=== PATIENT | male | born 1950 | race Caucasian/White ===

== ENCOUNTER 2017-10-27 11:49 | Outpatient (CLI) | payer MEDICARE, OTHER ==
[~2017-10-27] VITALS: Ht 188 cm; Wt 132.7 kg
--- NOTE | ~2017-10-27 | HEMODYNAMI ---
PATIENT:SAVANNA PORTER MEDICAL RECORD: [id number] : 52 LOCATION:D.CAT ADMISSION DATE: 10/27/17 Generatedon:10/27/201714:29 Patient name: SAVANNA PORTER Patient #: [id number] SSN : : 1950 Date of study: 10/27/2017 Page: Of Hemodynamic Procedure Report Patient Data Patient Demographics Procedure consent was obtained First Name: SAVANNA Gender: Male Last Name: CHARLOTTE : 1950 Middle Initial: M Age: 67 year(s) Patient #: [id number] Race: Unknown Additional ID: [id number] Contact details Address: [facility] [address] State: [place] City: [place] Zip code: [address] Past Medical History Allergies: No known allergies Admission Admission Data Admission Date: 10/27/2017 Admission Time: 11:49 Height (in.): 73 BSA: 2.51 (m2) Height (cm.): 185.42 BMI: 37.73 (kg/m2) Weight (lbs.): 286 Weight (kg.): 129.73 Procedure Procedure Types Cath Procedure Diagnostic Procedure Sedation Charges Moderate Sedation up to 30 minutes [facility] w/Coronaries PCI Procedure Coronary Stent Coronary Stent Initial Procedure Description Procedure Date Procedure Date: 10/27/2017 Procedure Start Time: 13:54 Procedure End Time: 14:28 Procedure Staff Name Function Rachid Garber MD Performing Physician Diann Mccoy RT Monitor Ignacio Cerda RN Nurse Piper Gonzalez RT Scrub Procedure Data Cath Procedure Fluoroscopy Diagnostic fluoroscopy Total fluoroscopy Time: 8.7 time: 8.7 min min Diagnostic fluoroscopy Total fluoroscopy dose: dose: 2080 mGy 2080 mGy Contrast Material Contrast Material Type Amount (ml) Isovue 300 153 Entry Location Entry Primary Successful Side Size Upsize Upsize Entry Closure Paulino ccessful Closure Location (Fr) 1 (Fr) 2 (Fr) Remarks Device Remarks Radial Right 6 Fr Mechanical TR Band artery Short Compression Femoral Right 5 Fr 6 Fr Exoseal artery Short Estimated blood loss: 10 ml Diagnostic catheters Device Type Used For End Catheter Placement DIAGNOSTIC Port Hadlock 110cm 5 Procedure Fr catheter (145255) DIAGNOSTIC AR 1 MOD 5Fr Procedure catheter ([id number]) DIAGNOSTIC 3DRC 5Fr Procedure catheter ([id number]) Procedure Complications No complications Procedure Medications Medication Administration Route Dosage Oxygen NC 2 l/min Lidocaine 2% added to field 20 Heparin Flush Bag added to field 2 bags (1000units/500ml NS) 0.9% NaCl I.V. 100 ml/hr Radial Cocktail I.A. 1 syringe (Verapomil 2mg/Nitro 400mcg/Heparin 1500units) Versed I.V. 1 mg Fentanyl I.V. 50 mcg Versed I.V. 1 mg Fentanyl I.V. 50 mcg Versed I.V. 1 mg Fentanyl I.V. 50 mcg Versed I.V. 1 mg Fentanyl I.V. 50 mcg Heparin Bolus I.V. 5000 units Integrilin (Bolus I.V. 11.3 ml 2mg/ml) Plavix P.O. 600 mg Hemodynamics Rest BSA: 2.51 (m2) O2 Consumption: Estimated: 286.23 (ml/min) O2 Consumption indexed : Estimated:114.04 (ml/min/m) Heart Rate: 64 (bpm) Pressure Samples Time Site Value (mmHg) Purpose Heart Use Rate(bpm) 13:58 LV 131/4,15 Snapshot 64 13:58 AO 107/66(85) Pullback 63 13:58 LV 120/14,16 Pullback 63 Gradients Valve Time Site 1 Site 2 Mean SEP/DFP Peak To Heart Use (mmHg) (sec/min) Peak Rate (mmHg) (bpm) Aortic 13:58 LV AO 13 14 13 63 120/14,16 107/66(85) Calculations Valve P-P Mean Valve Index Valve Source Name Gradient Area Flow (cm2) Aortic 13 13 13 13 Snapshots Pre Cath Intra NCS Post Cath Vital Signs Time Heart Resp SPO2 etCO2 NIBP (mmHg) Rhythm Pain Sedation Rate (ipm) (%) (mmHg) Status Level (bpm) 13:50:48 53 17 98 28.5 Measuring NSR 0 (11) 10(A) , No pain 13:51:11 49 20 97 32.2 180/88(146) NSR 0 (11) 10(A) , No pain 13:55:35 55 17 94 42 160/77(117) NSR 0 (11) 9(A) , No pain 13:59:57 63 16 94 38.7 148/82(110) NSR 0 (11) 9(A) , No pain 14:04:21 61 16 94 37 142/82(121) NSR 0 (11) 9(A) , No pain 14:09:37 54 17 98 36.7 148/82(116) NSR 0 (11) 9(A) , No pain 14:13:55 62 16 94 27.8 129/78(108) NSR 0 (11) 9(A) , No pain 14:18:09 60 17 95 0 136/73(122) NSR 0 (11) 10(A) , No pain 14:22:29 63 21 96 21 135/83(101) NSR 0 (11) 10(A) , No pain 14:26:49 62 18 97 27.7 138/79(99) NSR 0 (11) 10(A) , No pain Medications Time Medication Route Dose Verified Delivered Reason Note s Effectiveness by by 13:48:09 Oxygen NC 2 l/min Racihd Pierre used for [facility] Cameron Cerda RN procedure 13:48:16 Lidocaine 2% added 20ml Rachid Rashid for local to vial [facility] anesthetic field MD THOMAS 13:48:23 Heparin Flush added 2 bags Rachid Rashid used for Bag to [facility] procedure (1000units/500ml field MD THOMAS NS) 13:48:32 0.9% NaCl I.V. 100 Rachid Pierre Per physician ml/hr [facility] Cameron Cerda RN, MD 13:48:44 Radial Cocktail I.A. 1 Rachid Rashid for (Verapomil syringe [facility] vasodilation 2mg/Nitro MD THOMAS 400mcg/Heparin 1500units) 13:48:50 Versed I.V. 1 mg Rachid Pierre for sedation [facility] Cameron Cerda RN, MD 13:48:56 Fentanyl I.V. 50 mcg Rachid Castilloie for sedation [facility] Cameron Cerda RN, MD 13:52:32 Versed I.V. 1 mg Rachid Pierre for sedation [facility] Cameron Cerda RN, MD 13:52:36 Fentanyl I.V. 50 mcg Rachid Pierre for sedation [facility] Cameron Cerda RN, MD 13:57:57 Versed I.V. 1 mg Rachid Castilloie for sedation [facility] Cameron Cerda RN, MD 13:58:02 Fentanyl I.V. 50 mcg Rachid Castilloie for sedation [facility] Cameron Cerda RN, MD 14:08:23 Versed I.V. 1 mg Rachid Castilloie for sedation [facility] Cameron Cerda RN, MD 14:08:26 Fentanyl I.V. 50 mcg Rachid Pierre for sedation [facility] Cameron Cerda RN, MD 14:12:44 Heparin Bolus I.V. 5000 Rachid Pierre for veri fied units [facility] Cameron Cerda RN anticoagulation with dr MD contreras 14:14:20 Integrilin I.V. 11.3 ml Rachid Castilloie for wast ed (Bolus 2mg/ml) [facility] Cameron Cerda RN antiplatelet 8.7 ml MD therapy of vial 14:25:27 Plavix P.O. 600 mg Rachid Castilloie for [facility] Cameron Cerda RN antiplatelet MD therapy Procedure Log Time Note 13:22:02 Patient Height : 73 inches 13:22:09 Patient Weight : 286 lbs 13:24:51 Diagnostic Cath status Elective 13:24:53 Piper Gonzalez RT(R) sent for patient. Start room use. 13:25:20 Time tracking: Regular hours 13:25:25 Plan of Care:Hemodynamics will remain stable., Cardiac rhythm will remain stable., Comfort level will be maintained., Respiratory function will remain adequate., Patient/ family verbilizes understanding of procedure., Procedure tolerated without complication., Recovers from procedure without complications.. 13:25:31 Patient received from Pre/Post Procedure Room to [facility] 2 Alert and oriented. Tansferred to table in Supine position. 13:34:12 Warm blankets applied, and keanu hugger turned on for patient comfort. 13:34:13 Correct patient and procedure confirmed by team. 13:34:14 Signed procedure consent form obtained from patient. 13:34:15 ECG and BP/O2 sat monitors applied to patient. 13:34:26 H&P Date Dictated: 09/28/2017 Within 30 days and on chart.. 13:34:28 Pre-procedure instructions explained to patient. 13:34:31 Family in waiting room. 13:34:32 Patient NPO since Midnight. 13:34:42 Patient allergic to No known allergies 13:34:49 Is the patient allergic to Iodine/contrast media? No. 13:41:00 Was the patient premedicated? No 13:41:03 Is patient on blood thinner?No 13:41:05 Patient diabetic? Yes. 13:41:07 If diabetic: On Metformin? Yes 13:41:10 If on Metformin: Last Dose? 10/26/2017 13:41:14 Previous problem with sedation/anesthesia? No ? 13:41:16 Snore? Yes 13:41:17 Sleep apnea? Yes 13:41:18 Deviated septum? No 13:41:18 Opens mouth fully? Yes 13:41:19 Sticks out tongue? Yes 13:41:21 Airway obstruction? No ? 13:41:24 Dentures? No ? 13:41:28 Pre procedure: right dorsailis pedis pulse 2+ Normal; easily identifiable; not easily obliterated 13:41:31 Pre procedure: left dorsailis pedis pulse 2+ Normal; easily identifiable; not easily obliterated 13:41:34 Patient pain scale 0/10 ?. 13:41:41 IV patent on arrival in left forearm with 0.9% NaCl at [facility]. 13:41:45 Lab results completed and on chart. 13:41:49 Right Radial & Right Groin area was prepped with chlora-prep and draped in sterile fashion 13:41:50 Alarms reviewed by R. N. 13:41:50 Sharps counted by scrub and verified by R.N. 13:48:04 Physician paged 13:48:06 Physician arrived 13:48:07 --------ALL STOP TIME OUT------ 13:48:07 Final Timeout: patient, procedure, and site verified with staff and physician. All members of the team are in agreement. 13:48:09 Oxygen 2 l/min NC was administered by Ignacio Cerda RN; used for procedure; 13:48:09 Right Radial & Right Groin site verified by team. 13:48:12 Physical assessment completed. ASA score P 2 - A patient with mild systemic disease as per Rachid Garber MD. 13:48:16 Lidocaine 2% 20ml vial added to field was administered by Rachid Garber MD; for local anesthetic; 13:48:17 Sedation plan: IV Moderate Sedation Medication:Versed, Fentanyl 13:48:23 Heparin Flush Bag (1000units/500ml NS) 2 bags added to field was administered by Rachid Garber MD; used for procedure; 13:48:32 0.9% NaCl 100 ml/hr I.V. was administered by Ignacio Cerda RN; Per physician; 13:48:32 Use device set Radial Dx or PCI 13:48:38 ACIST Syringe (76988) opened to sterile field. 13:48:38 Medline Cath Pack ([id number]) opened to sterile field. 13:48:38 Bag Decanter (2002S) opened to sterile field. 13:48:39 SHEATH 6FR Slender ([id number]) opened to sterile field. 13:48:39 DIAGNOSTIC WIRE .035 260cm J wire (108484) opened to sterile field. 13:48:41 ACIST Hand Control (33297) opened to sterile field. 13:48:41 ACIST Manifold (27886) opened to sterile field. 13:48:42 Tegaderm 4 x 4 (1626W) opened to sterile field. 13:48:42 MBrace Wrist Support ([id number]) opened to sterile field. 13:48:43 NEEDLE Cook 21G 4cm Radial (A42798) opened to sterile field. 13:48:44 Radial Cocktail (Verapomil 2mg/Nitro 400mcg/Heparin 1500units) 1 syringe I.A. was administered by Rachid Garber MD; for vasodilation; 13:48:50 Versed 1 mg I.V. was administered by Ignacio Cerda RN; for sedation; 13:48:56 Fentanyl 50 mcg I.V. was administered by Ignacio Cerda RN; for sedation; 13:49:00 Vital chart was started 13:51:41 Zero performed for pressure channel P1 13:52:32 Versed 1 mg I.V. was administered by Ignacio Cerda RN; for sedation; 13:52:36 Fentanyl 50 mcg I.V. was administered by Ignacio Cerda RN; for sedation; 13:54:03 Procedure started. 13:54:03 Full Disclosure recording started 13:54:27 Local anesthetic to right radial artery with Lidocaine 2% by Rachid Garber MD.INITIAL ACCESS ONLY 13:54:40 A 6 Fr Short sheath was inserted into the Right Radial artery 13:55:12 A DIAGNOSTIC Port Hadlock 110cm 5 Fr catheter (808015) was advanced over the wire and used for Procedure. 13:55:16 LV angiography performed. 13:57:57 Versed 1 mg I.V. was administered by Ignacio Cerda RN; for sedation; 13:58:02 Fentanyl 50 mcg I.V. was administered by Ignacio Cerda RN; for sedation; 13:58:28 EF : 55 % 14:03:00 A DIAGNOSTIC AR 1 MOD 5Fr catheter (679809T) was advanced over the wire and used for Procedure. 14:04:08 Catheter removed. 14:07:47 SHEATH 5FR Wingina (RMP924) opened to sterile field. 14:08:23 Versed 1 mg I.V. was administered by Ignacio Cerda RN; for sedation; 14:08:26 Fentanyl 50 mcg I.V. was administered by Ignacio Cerda RN; for sedation; 14:08:56 Local anesthetic to right femoral artery with Lidocaine 2% by Rachid Garber MD.ADDITIONAL ACCESS 14:09:07 A 5 Fr sheath was inserted into the Right Femoral artery 14:09:28 A DIAGNOSTIC 3DRC 5Fr catheter (146488V) was advanced over the wire and used for Procedure. 14:10:26 Catheter removed. 14:10:33 SHEATH 6FR Wingina (CAS333) opened to sterile field. 14:10:39 Proceeding to intervention. 14:10:53 Sheath upsized to a 6 Fr Short. 14:12:44 Heparin Bolus 5000 units I.V. was administered by Ignacio Cerda RN; for anticoagulation; verified with dr contreras 14:12:48 WHISPER 300cm guide wire ([id number]) opened to sterile field. 14:12:51 INFLATOR Merit BasixCompak (FY2908) opened to sterile field. 14:12:52 GUIDE 6FR XBLAD 3.5 catheter ([id number]) opened to sterile field. 14:13:09 6 Fr XBLAD 3.5 guide catheter was inserted over the wire 14:13:27 Whisper wire advanced. 14:13:56 Wire advanced across lesion. 14:14:20 Integrilin (Bolus 2mg/ml) 11.3 ml I.V. was administered by Ignacio Cerda RN; for antiplatelet therapy; wasted 8.7 ml of vial 14:18:21 Inflation Number: 1 A MAKEDA OTW 2.5 x 22 stent ([id number]) was prepped and advanced across the Mid LAD. The stent was deployed at 14 ALYSIA for 0:39 (min:sec). 14:19:15 Stent catheter was removed intact over wire. 14::28 Inflation Number: 2 A MAKEDA OTW 3.0 x 18 stent ([id number]) was prepped and advanced across the Mid LAD. The stent was deployed at 14 ALYSIA for 0:37 (min:sec). 14::43 Stent catheter was removed intact over wire. 14::59 Wire removed. 14:23:05 Guide catheter removed. 14:23:22 Sheath removed intact; hemostasis achieved with Mechanical Compression to the Right Radial artery. 14:23:29 Sheath removed intact; hemostasis achieved with Exoseal to the Right Femoral artery. 14:23:40 TR BAND Standard ([id number]) opened to sterile field. 14:23:48 EXOSEAL 6Fr (EX600) opened to sterile field. 14:24:13 Procedure ended.(Physican Out) 14:25:27 Plavix 600 mg P.O. was administered by Ignacio Cerda RN; for antiplatelet therapy; 14::19 Fluoroscopy time 08.70 minutes. 14:26:24 Flurop Dose total: 2080 14:26:24 Fluoroscopy dose: 2080 mGy 14::31 Contrast amount:Isovue 300 153ml. 14:26:33 Sharps counted by scrub and verified by R.N. 14:26:35 TR band inflated with 12cc of air. 14:26:37 Insertion/operative site no bleeding no hematoma. 14:26:41 Post right femoral artery:stable 14::43 Post Procedure Pulses reassessed and unchanged 14::47 Post-procedure physical assessment completed. ASA score P 2 - A patient with mild systemic disease as per Rachid Garber MD. 14:26:50 Post procedure rhythm: unchanged. 14::59 Estimated blood loss: 10 ml 14:27: Post procedure instruction explained to patient.Patient verbalizes understanding. :: Procedure type changed to Cath procedure, Diagnostic procedure, Sedation Charges, Moderate Sedation up to 30 minutes, LHC, [facility] w/Coronaries, PCI procedure, Coronary Stent, Coronary Stent Initial :: Procedure and supply charges have been captured, reviewed, submitted and are correct. 14:27:58 Procedure Complication : No complications 14:28:01 Vital chart was stopped 14:28:01 See physician's report for complete and final results. 14:28:03 Report given to Pre/Post Procedure Room. 14:28:07 Patient transfered to Pre/Post Procedure Room with Stretcher. 14:28:09 Procedure ended. 14:28:09 Full Disclosure recording stopped 14:28:13 End room use (Document Last) 14:28:18 ACC-PCI Only Patient was given prescriptions, or instructed by Rachid Garber MD to start/continue the following medications upon discharge: Plavix Intervention Summary Intervention Notes Time ActionType Lesion and Equipment Action# Pressure Duration Attributes Used 14:18:21 Place stent Mid LAD MAKEDA OTW 2.5 1 14 00:39 x 22 stent ([id number]) 14:22:28 Place stent Mid LAD MAKEDA OTW 3.0 2 14 00:37 x 18 stent ([id number]) Device Usage Item Name Manufacture Quantity Catalog Hospital Part Current [facility] Lot# / Number Charge Number Stock Stock Serial# Code ACIST Syringe Acist 1 50057 184438 878159 026641 20 (54219) Medical Systems Inc Medline Cath Cardinal 1 [id number] 549650 67524 356655 5 [facility] ([id number]) Bag Decanter Microtek 1 2001S 312453 99795 496178 5 (2001S) Medical Inc. SHEATH 6FR Terumo 1 [id number] 804447 861579 127581 40 Slender ([id number]) DIAGNOSTIC St Nathan 1 339930 418409 966817 272904 30 WIRE .035 260cm J wire (960597) ACIST Hand Acist 1 80222 402334 574634 644503 5 Control Medical (11014) Systems Inc ACIST Acist 1 99977 163463 916898 371494 5 Manifold Medical (02082) Systems Inc Tegaderm 4 x 3M 1 1626W 044773 479942 475099 5 4 (1626W) MBrace Wrist Advanced 1 140-0250-00 033065 19128 967312 5 Support Vascular (406795177) Dynamics NEEDLE MyLuvs Medical 1 A19266 683772 941014 516427 5 21G 4cm Radial (L90638) DIAGNOSTIC Terumo 1 40-0703 349154 297027 555034 5 Port Hadlock 110cm 5 Fr catheter (461894) DIAGNOSTIC AR Cardinal 1 [id number] 055122 302306 434443 15 1 MOD 5Fr Health catheter (530009P) SHEATH 5FR Terumo 1 KQI591 480029 442217 125781 40 Wingina (FIW037) DIAGNOSTIC Cardinal 1 276193N 936998 521242 741535 9 3DRC 5Fr Health catheter (161977H) SHEATH 6FR Terumo 1 QMI940 411940 720371 280945 40 Wingina (MPI770) WHISPER 300cm Cano 1 [id number] 760687 788611 144812 5 guide wire Vascular (4415157FP) INFLATOR [facility] 1 UP8735 034991 428049 343025 15 [facility] BasixCompak (QK7769) GUIDE 6FR Cardinal 1 [id number] 907645 009944 145025 10 XBLAD 3.5 Health catheter (95082689) MAKEDA OTW 2.5 Medtronic 1 [id number] 752449 94908 340652 5 [id number] x 22 stent ([id number]) MAKEDA OTW 3.0 Medtronic 1 [id number] 041271 7240093 717563 5 [id number] x 18 stent ([id number]) TR BAND Terumo 1 [id number] 660483 373929 769838 40 Standard (HCV66OEM) EXOSEAL 6Fr Cardinal 1 EX600 268380 611179 938886 10 (EX600) Health Signature Audit [place] Stage Time Signature Unsigned Intra-Procedure 10/27/2017 Diann Mccoy 2:29:20 PM RT(R) Signatures Monitor : Diann Mccoy Signature : RT Date : Time : [facility] [address] [place] [address]
--- NOTE | ~2017-10-27 | OP ---
PATIENT NAME: SAVANNA PORTER MEDICAL RECORD: [id number] :52 LOCATION:D.CAT ADMISSION DATE: SURGEON: DAI NICHOLE MD DATE OF OPERATION: 10/27/2017 PROCEDURE: Left heart catheterization, selective coronary angiography, and right femoral artery approach. CATHETERS: A 5-Luxembourger sheath, 5/4 right and left Katharine, and 5/4 pig. The procedure was well tolerated. The patient returned to the kohli, sheath removed. Adequate hemostasis was obtained. FINDINGS: Left ventriculography 30-degree CAICEDO view: Normal wall motion and normal systolic function. CORONARY ANATOMY. 1. Left main: Left main is free of disease. 2. LAD has 2 sequential stenosis, true proximal ostial stenosis diffuse 80% and the midportion again about 80%. 3. CIRCUMFLEX: Free of disease. 4. RIGHT CORONARY ARTERY: Free of disease. IMPRESSION: Single-vessel disease involving left anterior descending. PLAN: Intervention momentarily. DESCRIPTION OF PROCEDURE: A 5-Luxembourger sheath was exchanged for a 6-Luxembourger sheath. XB LAD guiding catheter provided good guide catheter support followed by a 300 cm Whisper wire placed across both lesions of LAD in this portion of vessel. At this point, #1 this lesion was addressed with a 2.5 x 22 mm Julio Cesar drug-eluting stent up to 14 atmospheres. More proximally, a 3.0 x 18 mm drug-eluting stent was inflated up to 14 atmospheres. Final angiography shows excellent resolution of 2 diffuse 80% stenosis with no significant residual. CHICHI flow 3 was throughout the procedure. Heparin and Integrilin were used during the case. Sheath closed with ExoSeal device. TRANSINT:[id number] Voice Confirmation ID: [id number] DOCUMENT ID: [id number] DAI NICHOLE MD at 1231 CC: [id number] DICTATION DATE: 10/27/17 1429 HOME APPLIANCE INSTALLER: 10/27/17 1448 DEP CLI 10/27/17 [place] [id number]
[2017-10-27] MEDS ORDERED: GLIMEPIRIDE4 MG PO (12:08)
[2017-10-27] MEDS ORDERED: NOVOLOG100 U/M1 SC (12:09)
[2017-10-27] MEDS ORDERED: FLOMAX0.4 MG PO (12:09)
[2017-10-27] MEDS ORDERED: BASAGLAR K100 UNIT/1 SC (12:10)
[2017-10-27] MEDS ORDERED: XANAX0.5 MG PO (12:11)
[2017-10-27 12:18] VITALS: BP 167/76; Ht 188 cm; Wt 132.7 kg
[2017-10-27 12:28] LABS: BASOPHILS 0.6 % (0-2); EOSINOPHILS 2.5 % (0-7); HEMATOCRIT 45.7 % (42.0-54.0); HEMOGLOBIN 15.7 g/dL (13.5-17.5); IMMATURE GRANULOCYTES 0.6 % (0-5); LYMPHOCYTES 33.5 % (15-50); MCH 30.8 pg (26.0-34.0); MCHC 34.4 g/dL (31.0-37.0); MCV 89.6 fL (80.0-100.0); MEAN PLATELET VOLUME 11.7 fL (7.4-10.4); MONOCYTES 8.7 % (2-11); NEUTROPHILS 54.1 % (40-80); PLATELET COUNT 188 10x3/uL (130-400); RDW 12.9 % (11.5-14.5); WBC 6.9 10x3/uL (4.8-10.8)
[2017-10-27 12:48] LABS: CALCIUM 9.2 mg/dL (8.5-10.1); CREATININE - SERUM 1.1 mg/dL (0.6-1.3)
[2017-10-27] MEDS ORDERED: PLAVIX75 MG PO (15:23)
[2017-10-27] MEDS ORDERED: BAYER CHEWABLE81 MG PO (15:24)
== END 2017-10-27 19:15 | disposition home or self-care (01) ==
LOC: D.CATH 11:49
PROVIDERS: Internal Medicine Interventional Cardiology
DX: I25.119 Atherosclerotic heart disease of native coronary artery with unspecified angina pectoris (principal); Z01.812 Encounter for preprocedural laboratory examination
CPT/HCPCS: 93458; C9600

== ENCOUNTER 2017-11-01 17:51 | Inpatient (IN) | payer MEDICARE, OTHER ==
[2017-11-01] VITALS (11 sets, daily range): BP systolic 130–175; BP diastolic 80–94; BMI 36.5
[~2017-11-01] VITALS: Ht 188 cm; Wt 128.8 kg
--- NOTE | ~2017-11-01 | HP ---
PATIENT: SAVANNA PORTER MEDICAL RECORD: [id number] ACCOUNT: [id number] LOCATION:[facility].CV04 : 52 ADMISSION DATE: 11/01/17 HISTORY AND PHYSICAL EXAMINATION ADMITTING DIAGNOSES: 1. Acute myocardial infarction. 2. Coronary artery disease. 3. Recent percutaneous transluminal coronary angioplasty stent. HISTORY OF PRESENT ILLNESS: Mr. Porter presents with acute onset of chest pain this afternoon. He is status post PTCA stent of his LAD [address] Rodarte. He has been taking his Plavix. PHYSICAL EXAMINATION: GENERAL APPEARANCE: Well-nourished, well-developed, appears stated age. Level of distress, comfortable. PSYCHIATRIC: Mental status, alert, normal affect. Orientation, oriented to time, place and person. EYES: Lids and conjunctiva, noninjected. No discharge, no pallor. ENT: Lips, teeth, gums, normal dentition. Oropharynx, no cyanosis, no pallor. NECK: Carotid arteries, bilateral normal upstroke, no bruits, no thrills. JUGULAR VEINS: No jugular venous pressure or distention. CERVICAL LYMPH NODES: Nontender, nonenlarged. THYROID: Not enlarged. Nontender. No nodules. LUNGS: Respiratory effort, unlabored. CHEST: Normal curvature. No thoracic deformity. No chest wall tenderness. Percussion, resonant. Auscultation, clear. No wheezes, no rales, no rhonchi. CARDIOVASCULAR: Precordial exam, nondisplaced. No heaves or pericardial thrills. Rate and rhythm, regular. Heart sounds, normal S1, normal S2. No S3, no gallop, no rub. Systolic murmur, not heard. Diastolic murmur, not heard. EXTREMITIES: No cyanosis, no edema. Peripheral pulses, full and equal in all extremities, except as noted. No bruits appreciated. ABDOMEN: Soft, nondistended. Normal aorta. No bruit. Nontender. No masses. Liver, nontender, no hepatomegaly. Spleen, nontender, no splenomegaly. MUSCULOSKELETAL: No joint tenderness. No joint swelling. No erythema. NEUROLOGICAL: Normal gait, normal strength, normal tone. SKIN: Warm and dry. OVERALL IMPRESSION: Acute anterior myocardial infarction, most likely his Plavix nonresponder. We will load him with Effient and give IV heparin and proceed with repeat emergent coronary angiography. Further care depends upon the findings of the angiography. TRANSINT:[id number] Voice Confirmation ID: [id number] DOCUMENT ID: [id number] HISTORY AND PHYSICAL [id number] SAVANNA PORTER JEFFREY MD at 0857 CC: [id number] DICTATION DATE: 11/01/17 1834 CAN BANDER OPERATOR: 11/01/17 1901 ADM IN [place] [id number] [place] [id number]
--- NOTE | ~2017-11-01 | OP ---
PATIENT NAME: SAVANNA PORTER MEDICAL RECORD: [id number] :52 LOCATION:[facility] ADMISSION DATE:11/01/17 SURGEON: TK LOTT MD DATE OF OPERATION: 11/01/2017 PROCEDURES: 1. PTCA stent LAD. 2. Left heart catheterization. 3. Selective coronary angiography. 4. Left ventriculogram. INDICATION: Acute anterior myocardial infarction. PROCEDURE IN DETAIL: After informed consent was obtained and after detailed explanation of risks, benefits as well as alternative therapies, the patient elected to proceed with angiogram and angioplasty. The right femoral area was prepped and draped in normal sterile fashion. Right femoral artery was cannulated via modified Seldinger technique with placement of 6-Palauan sheath. All catheters exchanged through this sheath. FINDINGS: Left ventriculogram was performed in standard 30-degree CAICEDO view, reveals anteroapical hypokinesis, but ejection fraction preserved at 50%. SELECTIVE CORONARY ANGIOGRAPHY: 1. Left main showed no significant angiographic disease. 2. Left anterior descending has 2 previously placed stents. The proximal stent is widely patent. There is some acute thrombosis of the second stent with CHICHI 0 flow. 3. Left circumflex shows moderate irregularities, but no flow-limiting stenosis. 4. Right coronary has 70% stenosis in the proximal aspect, otherwise only mild irregularities throughout. PTCA STENT OF THE LAD: The stents used were 2.25 x 22 and 2.5 x 30 [place] drug-eluding stents. Result was 0% residual stenosis islam of CHICHI-3 flow. IMPRESSION: Successful percutaneous transluminal coronary angioplasty stent of the left anterior descending going from 100% initial stenosis with CHICHI 0 flow to 0% residual stenosis with CHICHI-3 flow. TRANSINT:[id number] Voice Confirmation ID: [id number] DOCUMENT ID: [id number] 11/22/2017 Edited to add name of stents used in procedure, dmm. TK LOTT MD at 1056 CC: [id number] DICTATION DATE: 11/01/171916 CERTIFIED NURSE OPERATING ROOM: 11/01/172042 DIS IN 11/03/17 [facility] [address] [place] [address]
--- NOTE | ~2017-11-01 | HEMODYNAMI ---
PATIENT:SAVANNA PORTER MEDICAL RECORD: [id number] : 52 LOCATION:[facility] ADMISSION DATE: 11/01/17 Generatedon:11/01/201719:25 Patient name: SAVANNA PORTER Patient #: [id number] SSN : : 1950 Date of study: 11/01/2017 Page: Of Hemodynamic Procedure Report Patient Data Patient Demographics Procedure consent was obtained First Name: SAVANNA Gender: Male Last Name: CHARLOTTE : 1950 Middle Initial: M Age: 67 year(s) Patient #: [id number] Race: Unknown Additional ID: [id number] Contact details Address: [place] [address] State: [place] City: [place] Zip code: [address] Past Medical History Allergies: No known allergies Admission Admission Data Admission Date: 11/01/2017 Admission Time: 17:51 Procedure Procedure Types Cath Procedure Diagnostic Procedure LHC LHC w/Coronaries PCI Procedure AMI/SVG/TRADE ANALYST PTCA or Stent AMI-BMS/ANGELA Initial Procedure Description Procedure Date Procedure Date: 11/01/2017 Procedure Start Time: 19:00 Procedure End Time: 19:25 Procedure Staff Name Function New Jerry MD Performing Physician Adeola Butterfield RT Monitor Hieu Higginbotham RN Nurse Piper Gonzalez RT Scrub Procedure Data Cath Procedure Fluoroscopy Diagnostic fluoroscopy Total fluoroscopy Time: 4.5 time: 4.5 min min Diagnostic fluoroscopy Total fluoroscopy dose: dose: 1004 mGy 1004 mGy Contrast Material Contrast Material Type Amount (ml) Isovue 300 93 Entry Location Entry Primary Successful Side Size Upsize Upsize Entry Closure Succes sful Closure Location (Fr) 1 (Fr) 2 (Fr) Remarks Device Remarks Femoral Right 6 Fr Exoseal artery Short Estimated blood loss: 10 ml Diagnostic catheters Device Type Used For End Catheter Placement MULTIPACK Pigtail 5 Fr LV Angiography catheter MULTIPACK 3DRC 5Fr Right Coronary catheter Angiography Procedure Complications No complications Procedure Medications Medication Administration Route Dosage Oxygen NC 2 l/min Heparin Flush Bag added to field 2 bags (1000units/500ml NS) 0.9% NaCl I.V. 100 ml/hr Fentanyl I.V. 50 mcg Versed I.V. 1 mg Fentanyl I.V. 50 mcg Versed I.V. 1 mg Fentanyl I.V. 50 mcg Heparin Bolus I.V. 5000 units Integrilin (Bolus I.V. 11.3 ml 2mg/ml) Fentanyl I.V. 50 mcg Integrilin Drip I.V. drip 21.1 ml/hr (75mg/100ml) Integrilin (Bolus wasted 8.7 ml 2mg/ml) Hemodynamics Rest Heart Rate: 64 (bpm) Snapshots Pre Cath Intra NCS Post Cath Vital Signs Time Heart Resp SPO2 etCO2 NIBP (mmHg) Rhythm Pain Sedation Rate (ipm) (%) (mmHg) Status Level (bpm) 18:56:50 53 17 100 0 177/89(149) NSR 0 (11) 10(A) , No pain 19:01:39 59 16 98 0 180/96(148) NSR 0 (11) 10(A) , No pain 19:06:28 75 16 95 0 150/93(126) NSR 0 (11) 10(A) , No pain 19:11:56 76 16 97 0 169/91(122) NSR 0 (11) 9(A) , No pain 19:16:45 77 16 98 0 176/94(143) NSR 0 (11) 9(A) , No pain 19:21:33 78 16 97 0 166/97(137) NSR 0 (11) 9(A) , No pain Medications Time Medication Route Dose Verified Delivered Reason Notes Effectiveness by by 18:54:35 Oxygen NC 2 [place] Per physician l/min Rosalino Higginbotham RN 18:54:43 Heparin Flush added 2 [place] used for Bag to bags Rosalino Higginbotham right of way cutter (1000units/500ml field NS) 18:54:52 0.9% NaCl I.V. 100 [place] Per physician ml/hr Rosalino Higginbotham RN 18:56:45 Fentanyl I.V. 50 [place] for sedation mcg Rosalino Higginbotham RN 18:56:52 Versed I.V. 1 mg [place] for sedation Rosalino Higginbotham RN 19:00:11 Fentanyl I.V. 50 [place] for sedation mcg Rosalino Higginbotham RN 19:00:14 Versed I.V. 1 mg [place] for sedation Rosalino Higginbotham RN 19:03:06 Fentanyl I.V. 50 [place] for sedation mcg Rosalino Higginbotham RN 19:03:16 Heparin Bolus I.V. 5000 [place] for units Rosalino Higginbotham RN anticoagulation 19:03:30 Integrilin I.V. 11.3 [place] for (Bolus 2mg/ml) ml Rosalino Higginbotham RN antiplatelet therapy 19:09:26 Fentanyl I.V. 50 [place] for sedation mcg Rosalino Higginbotham RN 19:17:54 Integrilin Drip I.V. 21.1 [place] for (75mg/100ml) drip ml/hr Rosalino Higginbotham RN antiplatelet therapy 19:19:50 Integrilin wasted 8.7 [place] for (Bolus 2mg/ml) ml Rosalino Higginbotham RN antiplatelet therapy Procedure Log Time Note 18:37:31 Diagnostic Cath Status : Elective 18:37:57 Hieu Higginbotham RN sent for patient. Start room use. 18:37:58 Time tracking: Regular hours 18:38:03 Plan of Care:Hemodynamics will remain stable., Cardiac rhythm will remain stable., Comfort level will be maintained., Respiratory function will remain adequate., Patient/ family verbilizes understanding of procedure., Procedure tolerated without complication., Recovers from procedure without complications.. 18:41:02 Previous problem with sedation/anesthesia? No ? 18:41:02 Snore? Yes 18:41:04 Sleep apnea? Yes 18:41:05 Deviated septum? No 18:41:05 Opens mouth fully? Yes 18:41:06 Sticks out tongue? Yes 18:41:08 Airway obstruction? No ? 18:41:10 Dentures? No ? 18:41:16 Patient diabetic? Yes. 18:41:16 If diabetic: On Metformin? Yes 18:41:26 H&P Date Dictated: 11/01/2017 ER History on chart.. 18:41:35 Use device set [facility] PCI 18:41:39 Use device set CATH PACK 18:41:41 DIAGNOSTIC WIRE .035 260cm J wire ([id number]) opened to sterile field. 18:41:42 Bag Decanter (2001S) opened to sterile field. 18:41:43 ACIST Manifold (07107) opened to sterile field. 18:41:44 Medline Cath Pack ([id number]) opened to sterile field. 18:41:45 ACIST Hand Control (74695) opened to sterile field. 18:41:45 ACIST Syringe (87074) opened to sterile field. 18:41:47 INFLATOR Merit BasixCompak (SF9227) opened to sterile field. 18:41:48 SHEATH 6FR Wendover (SEA408) opened to sterile field. 18:41:50 CHOICE PT Extra Support 182cm wire ([id number]) opened to sterile field. 18:41:56 Use device set Multipack Set 18:41:58 DIAGNOSTIC Multipack 5Fr catheter set ([id number]) opened to sterile field. 18:42:06 PERCUTANEOUS ENTRY 19GA needle opened to sterile field. 18:42:15 Tegaderm 4 x 4 (1626W) opened to sterile field. 18:44:19 Signed procedure consent form obtained from patient. 18:47:46 Patient received from ED to CCL 1 Alert and oriented. Tansferred to table in Supine position. 18:47:47 Warm blankets applied, and keanu hugger turned on for patient comfort. 18:47:47 Correct patient and procedure confirmed by team. 18:47:48 ECG and BP/O2 sat monitors applied to patient. 18:47:49 Full Disclosure recording started 18:54:13 Vital chart was started 18:54:17 Rhythm: sinus rhythm , w/ ST elevation 18:54:22 Pre-procedure instructions explained to patient. 18:54:22 Pre-op teaching completed and patient verbalized understanding. 18:54:24 Family in waiting room. 18:54:25 Patient NPO since Midnight. 18:54:31 Patient allergic to No known allergies 18:54:34 Is the patient allergic to Iodine/contrast media? No. 18:54:35 Oxygen 2 l/min NC was administered by Hieu Higginbotham RN; Per physician; 18:54:39 Is patient on blood thinner?Yes 18:54:42 ACC The patient was administered the following blood thiners within the last 24 hours: ACCAspirin, ACCPlavix 18:54:43 Heparin Flush Bag (1000units/500ml NS) 2 bags added to field was administered by Hieu Higginbotham RN; used for procedure; 18:54:46 Pre procedure: right dorsailis pedis pulse 2+ Normal; easily identifiable; not easily obliterated 18:54:52 0.9% NaCl 100 ml/hr I.V. was administered by Hieu Higginbotham RN; Per physician; 18:56:07 Patient pain scale 0/10 ?. 18:56:13 IV patent on arrival in left antecubital with 0.9% NaCl at [facility]. 18:56:16 Lab results completed and on chart. 18:56:21 Right groin area was prepped with chlora-prep and draped in sterile fashion 18:56:21 Alarms reviewed by R. N. 18:56:22 Sharps counted by scrub and verified by R.N. 18:56:23 Final Timeout: patient, procedure, and site verified with staff and physician. All members of the team are in agreement. 18:56:24 Right groin site verified by team. 18:56:28 Physical assessment completed. ASA score P 3 - A patient with severe systemic disease as per New Jerry MD. 18:56:31 Sedation plan: IV Moderate Sedation Medication:Versed, Fentanyl 18:56:45 Fentanyl 50 mcg I.V. was administered by Hieu Higginbotham RN; for sedation; 18:56:52 Versed 1 mg I.V. was administered by Hieu Higginbotham RN; for sedation; 18:59:13 Zero performed for pressure channel P1 18:59:44 Procedure started. 19:00:07 Baseline sample Acquired. 19:00:09 Local anesthetic to right femoral artery with Lidocaine 2% by New Jerry MD.INITIAL ACCESS ONLY 19:00:11 Fentanyl 50 mcg I.V. was administered by Hieu Higginbotham RN; for sedation; 19:00:14 Versed 1 mg I.V. was administered by Hieu Higginbotham RN; for sedation; 19:00:39 A 6 Fr Short sheath was inserted into the Right Femoral artery 19:01:05 A MULTIPACK Pigtail 5 Fr catheter was advanced over the wire and used for LV Angiography. 19:01:27 Injector settings: Ml/sec: 10, Volume: 20, 19:01:30 LV gram done using CAICEDO 19:01:34 EF : 50 % 19:01:35 Catheter removed. 19:02:14 A MULTIPACK 3DRC 5Fr catheter was advanced over the wire and used for Right Coronary Angiography. 19:02:51 Catheter removed. 19:03:05 6 Fr XBLAD 4.0 guide catheter was inserted over the wire 19:03:06 Fentanyl 50 mcg I.V. was administered by Hieu Higginbotham RN; for sedation; 19:03:10 GUIDE 6FR XBLAD 4.0 catheter ([id number]) opened to sterile field. 19:03:16 Heparin Bolus 5000 units I.V. was administered by Hieu Higginbotham RN; for anticoagulation; 19::30 Integrilin (Bolus 2mg/ml) 11.3 ml I.V. was administered by Hieu Higginbotham RN; for antiplatelet therapy; 19:03:36 LCA angiography performed. 19:04:28 CHOICE PT ES wire advanced. 19:06:02 Inflation number: 1 A EUPHORA 2.5 x 25 Balloon ([id number]) was prepped and advanced across the Mid LAD, then inflated to 9 ALYSIA for 0:03 (min:sec). 19:06:10 Inflation number: 2 The EUPHORA 2.5 x 25 Balloon ([id number]) was reinflated across the Mid LAD, to 11 ALYSIA for 0:04 (min:sec). 19:07:15 Balloon removed over the wire. 19:09:26 Fentanyl 50 mcg I.V. was administered by Hieu Higginbotham RN; for sedation; 19:10:10 Inflation Number: 3 A MAKEDA RX 2.25 x 22 stent ([id number]) was prepped and advanced across the Mid LAD. The stent was deployed at 15 ALYSIA for 0:11 (min:sec). 19:10:16 Inflation number: 4 The stent balloon was then re-inflated across the Mid LAD to 19 ALYSIA for 0:04 (min:sec). 19:11:03 Stent catheter was removed intact over wire. 19:12:24 Inflation Number: 5 A MAKEDA RX 2.5 x 30 stent ([id number]) was prepped and advanced across the Mid LAD. The stent was deployed at 19 ALYSIA for 0:05 (min:sec). 19:13:21 Stent catheter was removed intact over wire. 19:13:30 Sheath removed intact; hemostasis achieved with Exoseal to the Right Femoral artery. 19:13:32 Procedure ended.(Physican Out) 19:14:46 Fluoroscopy time 04.50 minutes. 19:14:52 Flurop Dose total: 1004 19:14:52 Fluoroscopy dose: 1004 mGy 19:14:56 Contrast amount:Isovue 300 93ml. 19:14:57 Sharps counted by scrub and verified by R.N. 19:14:58 Insertion/operative site no bleeding no hematoma. 19:15:00 Post-op/insertion site Right Femoral artery dressed using a 4 x 4 and Tegaderm. 19:15:04 Post right femoral artery:stable, clean and dry 19:15:05 Post Procedure Pulses reassessed and unchanged 19:15:08 Post-procedure physical assessment completed. ASA score P 2 - A patient with mild systemic disease as per New Jerry MD. 19:15:18 Post procedure rhythm: unchanged. 19:15:20 Estimated blood loss: 10 ml 19:15:21 Post procedure instruction explained to patient.Patient verbalizes understanding. 19:15:21 Patient needs reinforcement of post procedure teaching. 19:15:39 Procedure type changed to Cath procedure, Diagnostic procedure, LHC, LHC w/Coronaries, PCI procedure, AMI/SVG/TRADE ANALYST PTCA or Stent, AMI-BMS/ANGELA Initial 19:16:44 EXOSEAL 6Fr (EX600) opened to sterile field. 19:17:39 Procedure Complication : No complications 19:17:41 See physician's report for complete and final results. 19:17:54 Integrilin Drip (75mg/100ml) 21.1 ml/hr I.V. drip was administered by Hieu Higginbotham RN; for antiplatelet therapy; 19:18:00 Procedure and supply charges have been captured, reviewed, submitted and are correct. 19:19:50 Integrilin (Bolus 2mg/ml) 8.7 ml wasted was administered by Hieu Higginbotham RN; for antiplatelet therapy; 19:25:10 Vital chart was stopped 19:25:12 Report given to CVICU. 19:25:17 Patient transfered to CVICU with Bed. 19:25:19 Procedure ended. 19:25:19 Full Disclosure recording stopped 19:25:23 End room use (Document Last) Intervention Summary Intervention Notes Time ActionType Lesion and Equipment Used Action# Pressure Duration Attributes 19:06:02 Inflate Mid LAD EUPHORA 2.5 x 1 9 00:03 balloon 25 Balloon ([id number]) 19:06:10 Reinflate Mid LAD EUPHORA 2.5 x 2 11 00:04 balloon 25 Balloon ([id number]) 19:10:10 Place stent Mid LAD MAKEDA RX 2.25 x 3 15 00:11 22 stent ([id number]) 19:10:16 Reinflate Mid LAD MAKEDA RX 2.25 x 4 19 00:05 stent 22 stent balloon ([id number]) 19:12:24 Place stent Mid LAD MAKEDA RX 2.5 x 5 19 00:05 30 stent ([id number]) Device Usage Item Name Manufacture Quantity Catalog Number Hospital Part Current M inimal Lot# / Charge Number Stock Stock Serial# Code DIAGNOSTIC St Nathan 1 [id number] 734459 956700 900024 3 0 WIRE .035 260cm J wire (938951) Bag Decanter Microtek 1 2001S 073800 61370 568600 5 (2001S) Medical Inc. ACIST Manifold Acist 1 07748 155352 224505 558026 5 (90471) Medical Systems Inc Medline Cath Cardinal 1 [id number] 714616 64346 016373 5 Pack Health ([id number]) ACIST Hand Acist 1 66211 262649 137114 208545 5 Control Medical (61995) Systems Inc ACIST Syringe Acist 1 81267 762377 410041 802140 2 0 (41533) Medical Systems Inc INFLATOR Merit Merit 1 SZ4705 698409 590103 576156 1 5 Bas[employer]enix [employer] Medical (CC3571) SHEATH 6FR Terumo 1 RIB265 501841 186000 226569 4 0 Wendover (MVR188) CHOICE PT [place] 1 [id number] 795276 505136 830881 5 Extra Support Scientific 182cm wire ([id number]) DIAGNOSTIC Cardinal 1 IK4705 274861 99982 506674 3 0 Multipack 5Fr Health catheter set (RG6494) PERCUTANEOUS Cook Medical 1 Q73300 686430 770422 5 ENTRY 19GA needle Tegaderm 4 x 4 3M 1 1626W 935071 834060 618001 5 (1626W) MULTIPACK Cardinal 1 340201 5 Pigtail 5 Fr Health catheter MULTIPACK 3DRC Cardinal 1 081953 5 5Fr catheter Health GUIDE 6FR Cardinal 1 [id number] 960065 019926 545126 3 XBLAD 4.0 Health catheter ([id number]) EUPHORA 2.5 x Medtronic 1 [id number] 138928 991273 467003 5 [id number] 25 Balloon ([id number]) MAKEDA RX 2.25 x Medtronic 1 [id number] 491403 9941761 726102 5 [id number] 22 stent ([id number]) MAKEDA RX 2.5 x Medtronic 1 [id number] 647408 9929300 076445 5 [id number] 30 stent ([id number]) EXOSEAL 6Fr Cardinal 1 EX600 021432 416414 252804 1 0 (EX600) Health Signature Audit Kelliher Stage Time Signature Unsigned Intra-Procedure 11/01/2017 Adoela 7:25:49 PM Counts RT(R) Signatures Monitor : Adeola Signature : Counts RT Date : Time : [address] [place] [address]
--- NOTE | ~2017-11-01 | DS ---
PATIENT:SAVANNA PORTER :52 MEDICAL RECORD: [id number] DISCHARGE SUMMARY ADMISSION DATE: 11/01/17 DISCHARGE DATE: 11/03/17 DISCHARGE DIAGNOSES: 1. Acute anterior myocardial infarction. 2. Percutaneous transluminal coronary angioplasty stent, left anterior descending. 3. Hyperlipidemia. HOSPITAL COURSE: This is a gentleman who presents with an acute anterior myocardial infarction and underwent successful PTCA stent of the LAD, was discharged home with the addition of Effient, aspirin, Pravachol, Lopressor, nitro patch to his medical regimen. We will follow up with [facility] in 2 weeks. TRANSINT:[id number] Voice Confirmation ID: [id number] DOCUMENT ID: [id number] TK LOTT MD at 1202 CC: [id number] DICTATION DATE: 11/03/17 0859 CLIENT EXPERIENCE CONSULTANT: 11/03/17 1150 DIS IN 11/03/17 [id number] [place] [address]
[~2017-11-01 17:51] MED LIST: BASAGLAR K100 UNIT/1 SC; BAYER CHEWABLE81 MG PO; FLOMAX0.4 MG PO; GLIMEPIRIDE4 MG PO; NOVOLOG100 U/M1 SC; PLAVIX75 MG PO; XANAX0.5 MG PO
[2017-11-01 18:11] LABS: BASOPHILS 0.4 % (0-2); EOSINOPHILS 1.8 % (0-7); HEMATOCRIT 44.3 % (42.0-54.0); HEMOGLOBIN 15.5 g/dL (13.5-17.5); IMMATURE GRANULOCYTES 0.5 % (0-5); LYMPHOCYTES 26.1 % (15-50); MCH 31.1 pg (26.0-34.0); MCV 88.8 fL (80.0-100.0); MEAN PLATELET VOLUME 12.1 fL (7.4-10.4); MONOCYTES 9.1 % (2-11); NEUTROPHILS 62.1 % (40-80); PLATELET COUNT 208 10x3/uL (130-400); RBC 4.99 10x6/uL (4.20-6.10); RDW 13.1 % (11.5-14.5); WBC 10.6 10x3/uL (4.8-10.8)
[2017-11-01 18:27] LABS: ALBUMIN 3.6 g/dL (3.4-5.0); ALKALINE PHOSPHATASE 65 U/L (46-116); ALT (SGPT) 40 U/L (10-68); BILIRUBIN - TOTAL 0.51 mg/dL (0.2-1.3); CALC OSMOLALITY 278 mosm/kg (275-300); CALCIUM 9.3 mg/dL (8.5-10.1); CARBON DIOXIDE 22.9 mmol/L (21.0-32.0); CHLORIDE - SERUM 100 mmol/L (98-107); CREATININE - SERUM 1.2 mg/dL (0.6-1.3); GLUCOSE 234 mg/dL (74-106); POTASSIUM - SERUM 3.8 mmol/L (3.5-5.1); PROTEIN - SERUM 7.5 g/dL (6.4-8.2); SODIUM 135 mmol/L (136-145); UREA NITROGEN 16 mg/dL (7-18); eGFR NON AFRICAN AMERICAN 64 mL/min (90-120)
[2017-11-01 18:41] LABS: CHOL - HDL RATIO 5.2 ratio (2.3-4.9); CHOLESTEROL, TOTAL 265 mg/dL (0-200); CREATINE KINASE 195 UL (21-232); HDL CHOLESTEROL 51 mg/dL (32-96); LDL CHOLESTEROL 179 mg/dL (0-100); LDL-HDL RATIO 3.5 ratio (1.5-3.5); TRIGLYCERIDE 178 mg/dL (30-200)
[2017-11-01] MEDS ORDERED: OMEPRAZOLE20 M1 PO (20:51)
[2017-11-02] VITALS (23 sets, daily range): BP systolic 102–162; BP diastolic 38–83; Ht 188 cm; Wt 128.8 kg
[2017-11-03] VITALS (8 sets, daily range): BP systolic 92–125; BP diastolic 35–64
[2017-11-03] MEDS ORDERED: PRAVACHOL20 MG PO (09:54)
[2017-11-03] MEDS ORDERED: LOPRESSOR25 MG PO (09:54)
[2017-11-03] MEDS ORDERED: EFFIENT10 MG PO (09:54)
[2017-11-03] MEDS ORDERED: NITRO-DUR0.3 MG TRANSDERM (09:54)
== END 2017-11-03 10:59 | disposition home or self-care (01) | DRG 247 ==
LOC: D.CVICU 17:51 → D.ER 17:51 → D.CVICU 19:31 → D.ER 22:48 → D.CVICU 22:49
PROVIDERS: Emergency Medicine; Internal Medicine Interventional Cardiology
PROC: B2111ZZ Fluoroscopy of Multiple Coronary Arteries using Low Osmolar Contrast (ICD-10-PCS; 2017-11-01)
PROC: B2151ZZ Fluoroscopy of Left Heart using Low Osmolar Contrast (ICD-10-PCS; 2017-11-01)
PROC: 027035Z Dilation of Coronary Artery, One Artery with Two Drug-eluting Intraluminal Devices, Percutaneous Approach (ICD-10-PCS; principal; 2017-11-01 19:00)
PROC: 4A023N7 Measurement of Cardiac Sampling and Pressure, Left Heart, Percutaneous Approach (ICD-10-PCS; 2017-11-01 19:00)
DX: I21.09 ST elevation (STEMI) myocardial infarction involving other coronary artery of anterior wall (principal); I25.119 Atherosclerotic heart disease of native coronary artery with unspecified angina pectoris; Z95.5 Presence of coronary angioplasty implant and graft; E78.5 Hyperlipidemia, unspecified

== ENCOUNTER 2017-11-09 19:46 | Emergency (ER) | payer MEDICARE, OTHER ==
[2017-11-02 10:53] VITALS: BMI 36.4
[~2017-11-09 19:46] MED LIST changes: +EFFIENT10 MG PO; +LOPRESSOR25 MG PO; +NITRO-DUR0.3 MG TRANSDERM; +OMEPRAZOLE20 M1 PO; +PRAVACHOL20 MG PO
[2017-11-09 20:45] LABS: BASOPHILS 0.3 % (0-2); EOSINOPHILS 2.2 % (0-7); HEMATOCRIT 42.9 % (42.0-54.0); HEMOGLOBIN 14.7 g/dL (13.5-17.5); IMMATURE GRANULOCYTES 0.9 % (0-5); LYMPHOCYTES 22.1 % (15-50); MCH 31.1 pg (26.0-34.0); MCHC 34.3 g/dL (31.0-37.0); MCV 90.7 fL (80.0-100.0); MEAN PLATELET VOLUME 12.3 fL (7.4-10.4); MONOCYTES 8.7 % (2-11); NEUTROPHILS 65.8 % (40-80); PLATELET COUNT 218 10x3/uL (130-400); RBC 4.73 10x6/uL (4.20-6.10); RDW 13.2 % (11.5-14.5); WBC 8.8 10x3/uL (4.8-10.8)
[2017-11-09 20:59] LABS: ALBUMIN 3.4 g/dL (3.4-5.0); ANION GAP 12.9 mmol/L (8-16); BILIRUBIN - TOTAL 0.37 mg/dL (0.2-1.3); CALCIUM 9.1 mg/dL (8.5-10.1); CARBON DIOXIDE 26.4 mmol/L (21.0-32.0); CREATININE - SERUM 1.2 mg/dL (0.6-1.3); POTASSIUM - SERUM 4.3 mmol/L (3.5-5.1); PROTEIN - SERUM 7.6 g/dL (6.4-8.2)
[2017-11-09 21:24] LABS: TROPONIN-I 1.919 ng/mL (0.000-0.060)
[2017-11-09 22:34] LABS: APPEARANCE CLEAR (CLEAR); COLOR YELLOW (YELLOW); NITRITE NEGATIVE (NEGATIVE); PROTEIN NEGATIVE (NEGATIVE)
[2017-11-09 22:35] LABS: BILIRUBIN NEGATIVE (NEGATIVE); GLUCOSE NEGATIVE (NEGATIVE); KETONE NEGATIVE (NEGATIVE); UROBILINOGEN NORMAL (NORMAL)
== END 2017-11-10 00:26 | disposition home or self-care (01) ==
LOC: D.ER 19:46
PROVIDERS: Physician Assistant Medical
DX: R53.1 Weakness (principal); R79.89 Other specified abnormal findings of blood chemistry; E11.9 Type 2 diabetes mellitus without complications; I45.10 Unspecified right bundle-branch block

== ENCOUNTER → 2019-06-05 10:57 | Outpatient (CLI) | payer MEDICARE, BC ==
[2017-11-02 10:53] VITALS: BMI 36.4
--- NOTE | 2019-06-08 13:28 | EC ---
PATIENT:SAVANNA PORTER DATE OF SERVICE: 06/05/19 SEX: M MEDICAL RECORD: [id number] DATE OF : 52 [facility] AGE OF PATIENT: 69 ADMISSION DATE: 06/05/19 REFERRING PHYSICIAN: INTERPRETING PHYSICIAN: KT JERRY MD ECHOCARDIOGRAM REPORT ECHO CHARGES 4 ECHO COMPLETE Date: 06/05/19 CLINICAL DIAGNOSIS: MURMUR H/O CAD ECHOCARDIOGRAPHIC MEASUREMENTS (adult normal given) AC root (d.<3.7cm) 3.9 cm LV Septum d (<1.2 cm> 1.6 cm Valve Excursion 2.0 cm LV Septum (systole) 2.3 cm Left Atria (s.<4.0cm> 4.7 cm LVPW d(<1.2cm) 1.2 cm RV (d.<2.3cm) 3.0 cm LVPW (sytole) 2.1 cm LV diastole(<5.6CM) 5.9 cm MV E-F(>70mm/sec) cm LV systole 3.5 cm LVOT Diameter 2.1 cm MV exc.(>10mm) cm Est.ejection fraction (50-75%) % DOPPLER: LVIT cm/sec A 47.0 cm/sec E 128 cm/sec LA cm/sec RVSP 22.0 mmHg LVOT 102 cm/sec AOP1/2T m/s Asc. Ao 138 cm/sec RVOT 68.0 cm/sec RA cm/sec PA 116 cm/sec AV Gradient Peak 7.6 mmHg AV Mean 4.2 mmHg AV Area 2.7 cm MV Gradient Peak 5.6 mmHg MV Mean 1.8 mmHg MV Area cm COMMENTS: OP - HC Shearing Shed Hand: 1 DOLLY ZAMORANOOE Civil Preparedness Training Officer: 1 Dr. Jerry TAPE# PACS Pericardial Effusion N DATE OF SERVICE: FINDINGS: 1. Left ventricular chamber size is upper limits of normal. Left ventricular systolic function is preserved at 60%. 2. Left atrium, right atrium, and right ventricular chamber sizes are mildly dilated. Left atrium measures 4.7 cm. 3. Valvular structures have normal structure and motion. 4. Doppler interrogation reveals no significant valvular insufficiency or stenosis, and pulmonary systolic pressure is normal estimated at 22 mmHg. ECHOCARDIOGRAM REPORT [id number] SAVANNA PORTER 5. No evidence of pericardial effusion or left ventricular thrombus. TRANSINT:[id number] Voice Confirmation ID: [id number] DOCUMENT ID: [id number] TK JERRY MD at 1328 CC: [id number] DICTATION DATE: 06/06/19 1127 SERVICE COORDINATOR ELDERLY FACILITY: 06/06/19 1143 DEP CLI 06/05/19 [place] [id number] [place] [id number]
== END | disposition home or self-care (01) ==
LOC: D.HCCECHO 05-23 14:30
PROVIDERS: ATTEND Internal Medicine Interventional Cardiology
DX: R01.1 Cardiac murmur, unspecified (principal)

== ENCOUNTER 2019-10-16 05:11 | Inpatient (IN) | payer MEDICARE, BC ==
[~2019-10-16] VITALS: Ht 188 cm; Wt 134.0 kg
--- NOTE | ~2019-10-16 | HEMODYNAMI ---
PATIENT:SAVANNA PORTER MEDICAL RECORD: [id number] : 52 LOCATION:[facility] D.2120 ADMISSION DATE: 10/16/19 Generatedon:10/17/201916:22 Patient name: SAVANNA PORTER Patient #: [id number] SSN : [id number] : 1950 Date of study: 10/17/2019 Page: Of Hemodynamic Procedure Report Patient Data Patient Demographics Procedure consent was obtained First Name: SAVANNA Gender: Male Last Name: CHARLOTTE : 1950 Middle Initial: M Age: 69 year(s) Patient #: [id number] Race: SSN: [id number] Additional ID: [id number] Contact details Address: [place] [address] State: [place] City: [place] Zip code: [address] Past Medical History Allergies: No known allergies Admission Admission Data Admission Date: 10/16/2019 Admission Time: 6:48 Arrival Date: 10/16/2019 Arrival Time: 6:48 Admit Source: Emergency Insurance Payor: Medicare department [facility] #: [id number] Room #: 212 Height (in.): 74.02 BSA: 2.57 (m2) Height (cm.): 188 BMI: 37.91 (kg/m2) Weight (lbs.): 295.42 Weight (kg.): 134 Lab Results Lab Result Date: 10/17/2019 Lab Result Time: 0:00 Biochemistry Name Units Result Min Max BUN mg/dl 22 --(----)-* 7 18 Creatinine mg/dl 1.2 --(---*)-- 0.6 1.3 eGFR ml/min 64.29337 *-(----)-- 90 120 NONAFRICAN CBC Name Units Result Min Max Hemoglobin g/dl 14.3 --(*---)-- 13.5 17.5 Procedure Procedure Types Cath Procedure Diagnostic Procedure [facility] w/Coronaries Sedation Charges Moderate Sedation up to 45 minutes PCI Procedure Coronary Stent Coronary Stent Initial Hemochron ACT Test Procedure Description Procedure Date Procedure Date: 10/17/2019 Procedure Start Time: 15:34 Procedure End Time: 16:17 Procedure Staff Name Function Víctor Martini MD Performing Physician Piper Gonzalez RT Monitor Diann Mccoy RT Scrub Dayron Malcolm RN Nurse Procedure Data Cath Procedure Fluoroscopy Diagnostic fluoroscopy Total fluoroscopy Time: 8.7 time: 8.7 min min Diagnostic fluoroscopy Total fluoroscopy dose: dose: 2667 mGy 2667 mGy Contrast Material Contrast Material Type Amount (ml) Isovue 300 188 Entry Location Entry Primary Successful Side Size Upsize Upsize Entry Closure Succes sful Closure Location (Fr) 1 (Fr) 2 (Fr) Remarks Device Remarks Femoral Right 5 Fr 6 Fr Exoseal artery Short Estimated blood loss: 5 ml Diagnostic catheters Device Type Used For End Catheter Placement MULTIPACK JL 4.0 5Fr Left Coronary catheter Angiography MULTIPACK 3DRC 5Fr Right Coronary catheter Angiography MULTIPACK Pigtail 5 Fr LV Angiography catheter Procedure Complications No complications Procedure Medications Medication Administration Route Dosage 0.9% NaCl I.V. 100 ml/hr Oxygen etCO2 Nasal cannula 3 l/min Heparin Flush Bag added to field 2 bags (1000units/500ml NS) Lidocaine 2% added to field 20 Versed I.V. 2 mg Fentanyl I.V. 100 mcg Heparin Bolus I.V. 16798 units Versed I.V. 2 mg Nitroglycerin IC/IA I.C. 100 mcg Effient P.O. 60 mg Hemodynamics Rest BSA: 2.57 (m2) HGB: 14.3 (g/dl) O2 Consumption: Estimated: 279.25 (ml/min) O2 Co nsumption indexed: Estimated:108.66 (ml/min/m) Heart Rate: 50 (bpm) Pressure Samples Time Site Value (mmHg) Purpose Heart Use Rate(bpm) 15:49 LV 129/12,23 Snapshot 51 15:49 AO 128/65(89) Pullback 55 15:49 LV 134/-5,34 Pullback 55 Gradients Valve Time Site 1 Site 2 Mean SEP/DFP Peak To Heart Use (mmHg) (sec/min) Peak Rate (mmHg) (bpm) Aortic 15:49 LV AO 15 19 6 55 134/-5,34 128/65(89) Calculations Valve P-P Mean Valve Index Valve Source Name Gradient Area Flow (cm2) Aortic 6 15 6 15 Snapshots Pre Cath Intra NCS Post Cath Vital Signs Time Heart Resp SPO2 etCO2 NIBP (mmHg) Rhythm Pain Sedation Rate (ipm) (%) (mmHg) Status Level (bpm) 15:26:24 50 23 94 0 156/78(122) NSR 0 (11) 10(A) , No pain 15:30:46 53 18 96 25.7 131/72(97) NSR 0 (11) 10(A) , No pain 15:35:02 48 20 97 0 132/73(101) NSR 0 (11) 9(A) , No pain 15:39:57 52 10 96 30.2 123/76(87) NSR 0 (11) 9(A) , No pain 15:44:07 51 14 96 0 133/78(96) NSR 0 (11) 9(A) , No pain 15:49:06 49 14 96 18.9 139/74(105) NSR 0 (11) 9(A) , No pain 15:53:24 48 15 97 32.5 140/76(96) NSR 0 (11) 9(A) , No pain 15:57:28 56 14 96 24.2 120/76(101) NSR 0 (11) 10(A) , No pain 16:01:40 54 13 97 0 130/73(109) NSR 0 (11) 10(A) , No pain 16:05:54 50 14 98 8.3 134/73(104) NSR 0 (11) 9(A) , No pain 16:10:08 40 15 97 15.1 114/69(84) NSR 0 (11) 9(A) , No pain 16:14:15 53 18 97 31.8 125/73(101) NSR 0 (11) 10(A) , No pain Medications Time Medication Route Dose Verified Delivered Reason Note s Effectiveness by by 15:27:41 0.9% NaCl I.V. 100 Dayron Dayron Per physician ml/hr Yun Malcolm RN, RN 15:27:44 Versed I.V. 2 mg Dayron Dayron for sedation Yun Malcolm RN, RN 15:27:51 Fentanyl I.V. 100 Dayron Dayron for sedation mcg Lorigan Lorigan RN RN 15:27:51 Oxygen etCO2 3 Dayron Dayron for low 02 sats Nasal l/min Yun Malcolm cannula RN RN 15:28:01 Heparin Flush added 2 bags Dayron Dayron used for Bag to Yun Malcolm procedure (1000units/500ml field RN RN NS) 15:28:11 Lidocaine 2% added 20ml Dayron Dayron for local to vial Yun Malcolm anesthetic field RN RN 15:54:56 Heparin Bolus I.V. 10,000 Dayron Dayron for units Yun Malcolm anticoagulation RN RN 15:55:02 Versed I.V. 2 mg Dayron Dayron for sedation Ynu Malcolm RN RN 16:09:08 Nitroglycerin I.C. 100 Dayron Víctor for IC/IA mcg Yun Martini MD vasodilation RN 16:21:22 Effient P.O. 60 mg Dayron Víctor for Yun Martini MD antiplatelet RN therapy Procedure Log Time Note 15:06:53 Informed consent obtained and on chart 15:08:50 Arrival Date: 10/16/2019 6:48:00 AM 15:09:18 Insurance Payor : Medicare 15:09:21 Admit Source: Emergency department 15:09:36 Patient Height : 74.02 inches 15:09:46 Patient Weight : 295.42 lbs 15:11:18 Lab Result : BUN 22 mg/dl 15:11:18 Lab Result : eGFR NONAFRICAN 64.95228 ml/min 15:11:18 Lab Result : Hemoglobin 14.3 g/dl 15:11:18 Lab Result : Creatinine 1.2 mg/dl 15:11:23 Diagnostic Cath Status : Urgent 15:11:47 Diann Mccoy RT(R) sent for patient. Start room use. 15:11:47 Time tracking: Regular hours (M-F 7:00 - 5:00) 15:11:51 Plan of Care:Hemodynamics will remain stable., Cardiac rhythm will remain stable., Comfort level will be maintained., Respiratory function will remain adequate., Patient/ family verbilizes understanding of procedure., Procedure tolerated without complication., Recovers from procedure without complications.. 15:15:03 Patient received from Med II to [facility]3] 2 Alert and oriented. Tansferred to table in Supine position. 15:15:05 Warm blankets applied, and keanu hugger turned on for patient comfort. 15:15:05 Correct patient and procedure confirmed by team. 15:15:06 ECG and BP/O2 sat monitors applied to patient. 15:16:12 2) 60-89 Mildly reduced kidney function, and other findings (as for stage 1) point to kidney disease. 15:16:15 Maximum allowable contrast dose (3.7 X eGFR X 0.75)177 ml. 15:24:19 Vital chart was started 15:24:20 Baseline sample Acquired. 15:24:23 Rhythm: sinus rhythm 15::26 Full Disclosure recording started 15:24:30 H&P Date Dictated: 10/17/2019 New H&P dictated by physician.. 15:24:32 Pre-procedure instructions explained to patient. 15:24:32 Pre-op teaching completed and patient verbalized understanding. 15:24:34 Family in patients room. 15:24:35 Patient NPO since Midnight. 15:24:36 Is the patient allergic to Iodine/contrast media? No. 15:24:37 Was the patient premedicated? Yes 15:24:45 Is patient on blood thinner?No 15:24:47 Patient diabetic? Yes. 15:24:57 If diabetic: On Metformin? Unknown 15:25:00 Previous problem with sedation/anesthesia? No ? 15:25:02 Snore? Yes 15:25:02 Sleep apnea? Yes 15:25:03 Deviated septum? No 15:25:09 Opens mouth fully? Yes 15:25:10 Sticks out tongue? Yes 15:25:14 Airway obstruction? No ? 15:25:18 Dentures? No ? 15:25:21 Pre procedure: right dorsailis pedis pulse 2+ Normal; easily identifiable; not easily obliterated 15:25:25 Pre procedure: left dorsailis pedis pulse 2+ Normal; easily identifiable; not easily obliterated 15:25:30 Patient pain scale 0/10 ?. 15:25:34 IV patent on arrival in left forearm with 0.9% NaCl at O. 15:25:37 Lab results completed and on chart. 15:25:41 Stress Test: yes; abnormal 46 15:25:45 Risk of Mortality: 0.9 15:25:48 Risk of blood transfusion: 0.1 15:25:52 Risk of RIZWAN: 0.5 15:25:57 Right groin area was prepped with chlora-prep and draped in sterile fashion 15::58 Alarms reviewed by Mila N. 15::58 Sharps counted by scrub and verified by R.N. 15:26:06 Physician arrived 15:: --------ALL STOP TIME OUT------ 15:26:07 Final Timeout: patient, procedure, and site verified with staff and physician. All members of the team are in agreement. 15:26:09 Right groin site verified by team. 15:26:13 Fire Safety Assessment: A--An alcohol-based skin anteseptic being used preoperatively., C--Open oxygen or nitrous oxide is being used., D--An ESU, laser, or fiber-optic light is being used. 15:26:15 Physical assessment completed. ASA score P 2 - A patient with mild systemic disease as per Víctor Martini MD. 15:26:19 Sedation plan: IV Moderate Sedation Medication:Versed, Fentanyl 15:26:23 Use device set Femoral Dx 15:26:25 ACIST Syringe (73323) opened to sterile field. 15:26:25 Bag Decanter (2002S) opened to sterile field. 15:26:26 Medline Cath Pack ([id number]) opened to sterile field. 15:26:27 ACIST Hand Control (53462) opened to sterile field. 15:26:27 ACIST Manifold (74030) opened to sterile field. 15:26:28 DIAGNOSTIC Multipack 5Fr catheter set (JM4105) opened to sterile field. 15:26:28 Tegaderm 4 x 4 (1626W) opened to sterile field. 15:26:29 SHEATH 5FR [place] (VHY144) opened to sterile field. 15:26:30 EMERALD Guide Wire (110-691) opened to sterile field. 15:27:41 0.9% NaCl 100 ml/hr I.V. was administered by Dayron Malcolm RN; Per physician; Verbal order read back and verified. 15:27:44 Versed 2 mg I.V. was administered by Dayron Malcolm RN; for sedation; Verbal order read back and verified. 15:27:51 Fentanyl 100 mcg I.V. was administered by Dayron Lorigan RN; for sedation; Verbal order read back and verified. 15:27:51 Oxygen 3 l/min etCO2 Nasal cannula was administered by Dayron Malcolm RN; for low 02 sats; Verbal order read back and verified. 15:28:01 Heparin Flush Bag (1000units/500ml NS) 2 bags added to field was administered by Dayron Malcolm RN; used for procedure; Verbal order read back and verified. 15:28:11 Lidocaine 2% 20ml vial added to field was administered by Dayron Malcolm RN; for local anesthetic; Verbal order read back and verified. 15:34:11 Procedure started. 15:34:16 Local anesthetic to right femoral artery with Lidocaine 2% by Víctor Martini MD.INITIAL ACCESS ONLY 15:36:58 A 5 Fr sheath was inserted into the Right Femoral artery 15:39:59 A MULTIPACK JL 4.0 5Fr catheter was advanced over the wire and used for Left Coronary Angiography. 15:44:05 LCA angiography performed. 15:45:59 Injector settings: Ml/sec: 3, Volume: 6, 15:47:11 Catheter removed. 15:47:16 A MULTIPACK 3DRC 5Fr catheter was advanced over the wire and used for Right Coronary Angiography. 15:47:52 RCA angiography performed. 15:47:54 Injector settings: Ml/sec: 3, Volume: 6, 15:47:57 Catheter removed. 15:48:02 A MULTIPACK Pigtail 5 Fr catheter was advanced over the wire and used for LV Angiography. 15:48:39 SHEATH 6FR [place] (XSJ142) opened to sterile field. 15:48:39 INFLATOR Merit BasixCompak (ZF3513) opened to sterile field. 15:48:40 BMW 300cm [place] 2 J wire ([id number]) opened to sterile field. 15:49:09 LV hemodynamics recorded. 15:49:10 LV gram done using CAICEDO 15:49:13 Injector settings: Ml/sec: 5, Volume: 15, 15:49:33 EF : 55 % 15:49:44 Catheter removed. 15:49:44 Proceeding to intervention. 15:49:45 ACCDominant side:Right 15:49:54 Sheath upsized to a 6 Fr Short. 15:50:14 ACC Pre-intervention CHICHI Flow is 3. 15:50:24 GUIDE 6FR XBLAD 3.5 catheter ([id number]) opened to sterile field. 15:50:47 Pre PCI Site: [place] dCirc has 90% stenosis. 15:50:55 6 Fr XBLAD 3.5 guide catheter was inserted over the wire 15:51:00 BMW wire advanced. 15:52:21 TUBING High Pressure Extension Tubing (Vini) ([id number]) opened to sterile field. 15:54:32 Wire advanced across lesion. 15:54:56 Heparin Bolus 10,000 units I.V. was administered by Dayron Malcolm RN; for anticoagulation; Verbal order read back and verified. 15:55:02 Versed 2 mg I.V. was administered by Dayron Malcolm RN; for sedation; Verbal order read back and verified. 15:56:42 Inflate balloon Inflation number: 1 A EMERGE OTW 2.0 x 15 balloon ([id number]) was prepped and advanced across the Dist CX 90, then inflated to 11 ALYSIA for 0:10 (min:sec) 0. 15:57:45 Balloon removed over the wire. 16:01:31 Place stent Inflation Number: 2 A MAKEDA OTW 2.5 x 12 stent ([id number]) was prepped and advanced across the Dist CX 90. The stent was deployed at 13 ALYSIA for 0:10 (min:sec) 0. 16:02:15 Stent catheter was removed intact over wire. 16:06:42 Place stent Inflation Number: 1 A MAKEDA OTW 2.75 x 22 stent ([id number]) was prepped and advanced across the Mid CX 90. The stent was deployed at 14 ALYSIA for 0:10 (min:sec) 0. 16:06:49 Stent catheter was removed intact over wire. 16:09:08 Nitroglycerin IC/IA 100 mcg I.C. was administered by Víctor Martini MD; for vasodilation; Verbal order read back and verified. 16:13:04 Wire removed. 16:13:04 Guide catheter removed. 16:13:12 EXOSEAL 6Fr (EX600) opened to sterile field. 16:13:53 Sheath removed intact; hemostasis achieved with Exoseal to the Right Femoral artery. 16:14:31 ACC Post-intervention CHICHI Flow is 3. 16:14:55 Post PCI Site: [place] dCirc has 0% stenosis. 16:15:00 Procedure ended.(Physican Out) 16:15:10 Fluoroscopy time 08.70 minutes. 16:15:18 Fluoroscopy dose: 2667 mGy 16:15:18 Flurop Dose total: 2667 16:15:23 Dose Area Product 618645 mGy/cm. 16:16:01 Contrast amount:Isovue 300 188ml. 16:16:04 Maximum allowable dose exceeded? No. 16:16:05 Sharps counted by scrub and verified by R.N. 16:16:06 Insertion/operative site no bleeding no hematoma. 16:16:09 Post-op/insertion site Right Femoral artery dressed using a 4 x 4 and Tegaderm. 16:16:10 Post Procedure Pulses reassessed and unchanged 16:16:13 Post procedure rhythm: unchanged. 16:16:15 Estimated blood loss: 5 ml 16:16:17 Post procedure instruction explained to patient.Patient verbalizes understanding. 16:16:17 Patient needs reinforcement of post procedure teaching. 16:16:39 Procedure type changed to Cath procedure, Diagnostic procedure, LHC, C w/Coronaries, Sedation Charges, Moderate Sedation up to 45 minutes, PCI procedure, Coronary Stent, Coronary Stent Initial, Hemochron ACT Test 16:16:40 Procedure and supply charges have been captured, reviewed, submitted and are correct. 16:16:44 Procedure Complication : No complications 16:16:46 Vital chart was stopped 16:16:48 [facility] Findings: MVD- PCI performed (see procedure note) 16:16:50 Operative report dictated upon procedure completion. 16:16:50 See physician's report for complete and final results. 16:16:56 Report given to Pre/Post Procedure Room. 16:16:58 Report given to Pre/Post Procedure Room. 16:17:01 Procedure ended. 16:17:01 Full Disclosure recording stopped 16:17:12 ACC-PCI Only Patient was given prescriptions, or instructed by Víctor Martini MD to start/continue the following medications upon discharge: Plavix 16:17:13 End room use (Document Last) 16:19:04 ACT drawn and resulted at 260 seconds. (normal therapeutic range 180-240 seconds). 16:21:22 Effient 60 mg P.O. was administered by Víctor Martini MD; for antiplatelet therapy; Verbal order read back and verified. Intervention Summary Intervention Notes Time ActionType Lesion and Equipment Action# Pressure Duration Attributes Used 15:56:42 Inflate Dist CX EMERGE OTW 1 11 00:10 balloon 2.0 x 15 balloon ([id number]) 16:01:31 Place stent Dist CX MAKEDA OTW 2.5 2 13 00:10 x 12 stent ([id number]) 16:06:42 Place stent Mid CX MAKEDA OTW 2.75 1 14 00:10 x 22 stent ([id number]) Device Usage Item Name Manufacture Quantity Catalog Number Hospital Part Current [facility] Lot# / Charge Number Stock Stock Serial# Code ACIST Syringe Acist 1 07062 904947 041945 480721 20 (02991) Medical Systems Inc Bag Decanter Microtek 1 2001S 662954 45210 825841 5 (2001S) Medical Inc. Medline Cath Medline 1 [id number] 835350 41752 181308 5 Pack ([id number]) ACIST Hand Acist 1 57305 023153 443277 589752 5 Control Medical (85761) Systems Inc ACIST Acist 1 69741 637247 658217 641772 5 Manifold Medical (90128) Systems Inc DIAGNOSTIC Cardinal 1 UP6519 919744 32155 216472 30 Multipack 5Fr Health catheter set (SU0419) Tegaderm 4 x 3M 1 1626W 635056 913088 866277 5 4 (1626W) SHEATH 5FR Terumo 1 MRJ829 541051 385685 415976 5 [place] (SJQ534) EMERALD Guide Cardinal 1 502-455 223882 791046 290727 5 Wire Health (502-455) MULTIPACK JL Cardinal 1 920751 5 4.0 5Fr Health catheter MULTIPACK Cardinal 1 821445 5 3DRC 5Fr Health catheter MULTIPACK Cardinal 1 098215 5 Pigtail 5 Fr Health catheter SHEATH 6FR Terumo 1 DZO267 646438 544215 459879 40 [place] (IDL835) INFLATOR Merit 1 FX7075 295585 781108 502043 15 [facility] Medical BasixCompak (OR6734) BMW 300cm [place] 1 [id number] 699715 231025 266510 5 [place] 2 J Vascular wire (3805614A) GUIDE 6FR Cardinal 1 [id number] 082497 728598 410795 10 XBLAD 3.5 Health catheter (88081681) TUBING High Merit 1 [id number] 385313 92962 963555 10 Pressure Medical Extension Tubing (Martini) (ST2202N) EMERGE OTW [place] 1 [id number] 694726 638577 417830 5 [id number] 2.0 x 15 Scientific balloon ([id number]) MAKEDA OTW 2.5 Medtronic 1 [id number] 791209 85056 676866 5 [id number] x 12 stent ([id number]) MAKEDA OTW 2.75 Medtronic 1 [id number] 742337 5606762 768625 5 [id number] x 22 stent ([id number]) EXOSEAL 6Fr Cardinal 1 EX600 462721 390327 623452 10 (EX600) Health Signature Audit [place] Stage Time Signature Unsigned Intra-Procedure 10/17/2019 Piper Gonzalez 4:19:52 PM RT(R) Intra-Procedure 10/17/2019 Dayron 4:20:19 PM Yun GORMAN Intra-Procedure 10/17/2019 Víctor Martini MD 4:22:19 PM Signatures Performing Physician : Signature : Víctor Martini MD Date : Time : Monitor : Piper Gonzalez RT Signature : Date : Time : Nurse : Dayron Malcolm Signature : RN Date : Time : [facility] [address] [place] [address]
--- NOTE | ~2019-10-16 | HEMODYNAMI ---
PATIENT:SAVANNA PORTER MEDICAL RECORD: [id number] : 52 LOCATION:[facility] D.2120 ADMISSION DATE: 10/17/19 Generatedon:10/19/201915:05 Patient name: SAVANNA PORTER Patient #: [id number] SSN : [id number] : 1950 Date of study: 10/19/2019 Page: Of Hemodynamic Procedure Report Patient Data Patient Demographics Procedure consent was obtained First Name: SAVANNA Gender: Male Last Name: CHARLOTTE : 1950 Middle Initial: M Age: 69 year(s) Patient #: [id number] Race: SSN: [id number] Additional ID: [id number] Contact details Address: [place] [address] State: [place] City: [place] Zip code: [address] Past Medical History Allergies Allergen Reaction Date Comments Reported Other allergy 10/19/2019 Admission Admission Data Admission Date: 10/17/2019 Admission Time: 17:43 Arrival Date: 10/16/2019 Arrival Time: 6:48 Admit Source: Other Insurance Payor: Medicare Room #: D.2120 [facility] #: [id number] Height (in.): 74.02 BSA: 2.57 (m2) Height (cm.): 188 BMI: 37.91 (kg/m2) Weight (lbs.): 295.42 Weight (kg.): 134 Lab Results Lab Result Date: 10/19/2019 Lab Result Time: 0:00 Biochemistry Name Units Result Min Max BUN mg/dl 14 --(--*-)-- 7 18 Creatinine mg/dl 1.3 --(---*)-- 0.6 1.3 eGFR ml/min 58 *-(----)-- 90 120 NONAFRICAN CBC Name Units Result Min Max Hematocrit % 44.1 --(*---)-- 42 54 Hemoglobin g/dl 15 --(-*--)-- 13.5 17.5 Procedure Procedure Types Cath Procedure Diagnostic Procedure FFR/IVUS FFR Initial FFR Additional Sedation Charges Moderate Sedation up to 30 minutes PCI Procedure Coronary Stent Coronary Stent Initial x2 Coronary Atherectomy Atherectomy w/Stent Coronary Initial Hemochron ACT Test Procedure Description Procedure Date Procedure Date: 10/19/2019 Procedure Start Time: 10:35 Procedure End Time: 11:08 Procedure Staff Name Function Ignacio Cerda RN Nurse New Jerry MD Performing Physician Socorro Turner RT Scrub Meghan Warner RT Monitor Indication CAD Procedure Data Cath Procedure Fluoroscopy Diagnostic fluoroscopy Total fluoroscopy Time: 0 time: 0 min min Diagnostic fluoroscopy Total fluoroscopy dose: dose: 591.76 mGy 591.76 mGy Contrast Material Contrast Material Type Amount (ml) Isovue 370 58 Entry Location Entry Primary Successful Side Size Upsize Upsize Entry Closure Succes sful Closure Location (Fr) 1 (Fr) 2 (Fr) Remarks Device Remarks Femoral Left 6 Fr Exoseal artery Short Estimated blood loss: 10 ml Procedure Complications No complications Procedure Medications Medication Administration Route Dosage Heparin Bolus I.V. 5000 units Oxygen etCO2 Nasal cannula 2 l/min Lidocaine 2% added to field 20 Heparin Flush Bag added to field 2 bags (1000units/500ml NS) 0.9% NaCl I.V. 100 ml/hr Versed I.V. 2 mg Fentanyl I.V. 100 mcg Versed I.V. 2 mg Fentanyl I.V. 100 mcg Versed I.V. 2 mg Hemodynamics Rest BSA: 2.57 (m2) HGB: 15 (g/dl) O2 Consumption: Estimated: 288.37 (ml/min) O2 Cons umption indexed: Estimated:112.21 (ml/min/m) Heart Rate: 60 (bpm) Snapshots Pre Cath Intra NCS Post Cath Vital Signs Time Heart Resp SPO2 etCO2 NIBP (mmHg) Rhythm Pain Sedation Rate (ipm) (%) (mmHg) Status Level (bpm) 10:24:19 58 11 96 28 Measuring NSR (Missing) 10(A) 10:24:29 55 18 96 31 159/83(130) NSR (Missing) 10(A) 10:28:53 59 14 96 31 151/82(124) NSR (Missing) 10(A) 10:33:09 63 13 94 0 141/82(108) NSR (Missing) 10(A) 10:37:23 61 12 94 29.5 138/76(105) NSR (Missing) 9(A) 10:41:39 68 13 95 1.5 144/77(125) NSR (Missing) 9(A) 10:45:57 71 11 94 28 150/77(110) NSR (Missing) 9(A) 10:50:17 68 13 94 30.3 148/78(127) NSR (Missing) 10(A) 10:54:37 71 13 95 25 148/75(115) NSR (Missing) 9(A) 10:58:55 68 13 95 27.2 146/77(114) NSR (Missing) 9(A) 11:03:12 68 16 95 18.9 163/88(130) NSR (Missing) 10(A) 11:06:55 66 21 96 29.5 183/153(177) NSR (Missing) 10(A) Medications Time Medication Route Dose Verified Delivered Reason Notes Effectiveness by by 10:21:23 Oxygen etCO2 2 New Buffie used for Nasal l/min Rosalino Cerda RN procedure cannula 10:21:30 Lidocaine 2% added 20ml New Buffie used for to vial Rosalino Cerda RN procedure field 10:21:37 Heparin Flush added 2 New Buffie used for Bag to bags Rosalino Cerda RN procedure (1000units/500ml field NS) 10:21:46 0.9% NaCl I.V. 100 New Buffie Per physician ml/hr Rosalino Cerda RN 10:34:00 Fentanyl I.V. 100 New Buffie for sedation mcg Rosalino Cerda RN 10:34:55 Versed I.V. 2 mg New Buffie for sedation Rosalino Cerda RN 10:37:59 Heparin Bolus I.V. 5000 New Buffie for verif ied units Rosalino Cerda RN anticoagulation with dr jerry 10:41:56 Versed I.V. 2 mg New Buffie for sedation Rosalino Cerda RN 10:42:00 Fentanyl I.V. 100 New Buffie for sedation mcg Rosalino Cerda RN 10:53:38 Versed I.V. 2 mg New Buffie for sedation Rosalino Cerda RN Procedure Log Time Note 9:37:47 Informed consent obtained and on chart 9:38:13 Patient Weight : 295.42 lbs 9:38:13 Patient Height : 74.02 inches 9:38:25 Indication : CAD 9:38:38 Procedure Status PCI. 9:38:48 Time tracking: Regular hours (M-F 7:00 - 5:00) 9:38:55 Plan of Care:Hemodynamics will remain stable., Cardiac rhythm will remain stable., Comfort level will be maintained., Respiratory function will remain adequate., Patient/ family verbilizes understanding of procedure., Procedure tolerated without complication., Recovers from procedure without complications.. 9:41:14 Risk of Mortality: 0.1 9:41:19 Risk of blood transfusion: 0.1 9:41:24 Risk of RIZWAN: 1.3 9:41:45 Patient diabetic? Yes. 9:41:49 If diabetic: On Metformin? No 9:42:07 Previous problem with sedation/anesthesia? No ? 9:42:10 Snore? Yes 9:42:14 Sleep apnea? Yes 9:42:17 Deviated septum? No 9:42:20 Opens mouth fully? Yes 9:42:22 Sticks out tongue? Yes 9:42:26 Airway obstruction? No ? 9:42:34 Dentures? No ? 9:43:46 Lab Result : Hemoglobin 15 g/dl 9:43:46 Lab Result : Hematocrit 44.1 % 9:43:46 Lab Result : eGFR NONAFRICAN 58 ml/min 9:43:46 Lab Result : BUN 14 mg/dl 9:43:46 Lab Result : Creatinine 1.3 mg/dl 9:47:27 Ignacio Cerda RN sent for patient. Start room use. 10:05:23 Patient received from Med II to CCL 3 Alert and oriented. Tansferred to table in Supine position. 10:05:25 Warm blankets applied, and keanu hugger turned on for patient comfort. 10:05:26 Correct patient and procedure confirmed by team. 10:05:28 ECG and BP/O2 sat monitors applied to patient. 10:21:23 Oxygen 2 l/min etCO2 Nasal cannula was administered by Ignacio Cerda RN; used for procedure; Verbal order read back and verified. 10:21:30 Lidocaine 2% 20ml vial added to field was administered by Buffie Cerda RN; used for procedure; Verbal order read back and verified. 10:21:37 Heparin Flush Bag (1000units/500ml NS) 2 bags added to field was administered by Ignacio Cerda RN; used for procedure; Verbal order read back and verified. 10:21:45 Pre-procedure instructions explained to patient. 10:21:45 H&P Date Dictated: 10/16/2019 Within 30 days and on chart.. 10:21:46 0.9% NaCl 100 ml/hr I.V. was administered by Ignacio Cerda RN; Per physician; Verbal order read back and verified. 10:21:46 Pre-op teaching completed and patient verbalized understanding. 10:21:55 Family in patients room. 10:21:57 Patient NPO since Midnight. 10:22:01 Is the patient allergic to Iodine/contrast media? No. 10:22:08 ACC The patient was administered the following blood thiners within the last 24 hours: ACCEffient 10:22:11 Is patient on blood thinner?Yes 10:22:21 Left groin area was prepped with chlora-prep and draped in sterile fashion 10:22:22 Sharps counted by scrub and verified by R.N. 10:22:22 Alarms reviewed by R. N. 10:22:29 Vital chart was started 10:22:31 Baseline sample Acquired. 10:22:34 Rhythm: sinus rhythm 10:22:36 Full Disclosure recording started 10:22:39 Admit Source: Other 10:24:38 Use device set TAUTH PCI 10:24:40 SHEATH 6FR [place] ([id number]) opened to sterile field. 10:24:42 INFLATOR Merit BasixCompak (SA8217) opened to sterile field. 10:24:51 CHOICE PT Extra Support 182cm wire ([id number]) opened to sterile field. 10:24:55 Use device set Femoral Dx 10:24:58 Bag Decanter (2002) opened to sterile field. 10:24:58 ACIST Syringe (79795) opened to sterile field. 10:24:59 Medline Cath Pack ([id number]) opened to sterile field. 10:25:00 ACIST Hand Control (95258) opened to sterile field. 10:25:03 ACIST Manifold (07884) opened to sterile field. 10:25:09 EMERALD Guide Wire (659-161) opened to sterile field. 10:25:41 Patient allergic to Other allergy 10:33:21 --------ALL STOP TIME OUT------ 10:34:00 Fentanyl 100 mcg I.V. was administered by Ignacio Cerda RN; for sedation; Verbal order read back and verified. 10:34:22 Final Timeout: patient, procedure, and site verified with staff and physician. All members of the team are in agreement. 10:34:24 Right groin site verified by team. 10:34:27 Fire Safety Assessment: A--An alcohol-based skin anteseptic being used preoperatively., C--Open oxygen or nitrous oxide is being used., D--An ESU, laser, or fiber-optic light is being used. 10:34:30 Physical assessment completed. ASA score P 2 - A patient with mild systemic disease as per New Jerry MD. 10:34:34 3a) 45-59 Moderately reduced kidney function. 10:34:38 Maximum allowable contrast dose (3.7 X eGFR X 0.75)161 ml. 10:34:42 Sedation plan: IV Moderate Sedation Medication:Versed, Fentanyl 10:34:49 GUIDE 6FR HS II catheter ([id number]) opened to sterile field. 10:34:55 Versed 2 mg I.V. was administered by Ignacio Cerda RN; for sedation; Verbal order read back and verified. 10:35:00 Mullin Verrata Plus pressure wire ([id number]) opened to sterile field. 10:35:06 Procedure started. 10:35:16 Local anesthetic to left femerol artery with Lidocaine 2% by New Jerry MD.INITIAL ACCESS ONLY 10:35:57 A 6 Fr Short sheath was inserted into the Left Femoral artery 10:36:49 6 Fr HS 1 guide catheter was inserted over the wire 10:36:55 Proceeding to intervention. 10:37:03 FFR/IFR wire advanced. 10:37:59 Heparin Bolus 5000 units I.V. was administered by Ignacio Cerda RN; for anticoagulation; verified with dr jerry Verbal order read back and verified. 10:38:20 Wire advanced across lesion. 10:39:09 RCA lesion measured at .87 with IFR 10:40:28 Pre PCI Site: [place] RCA has 70% stenosis. 10:41:03 Place stent Inflation Number: 1 A MAKEDA RX 3.0 x 22 stent ([id number]) was prepped and advanced across the Mid RCA . The stent was deployed at 15 ALYSIA for 0:00 (min:sec) . 10:41:56 Versed 2 mg I.V. was administered by Ignacio Cerda RN; for sedation; Verbal order read back and verified. 10:42:00 Fentanyl 100 mcg I.V. was administered by Ignacio Cerda RN; for sedation; Verbal order read back and verified. 10:42:55 Post PCI Site: [place] RCA has .94% stenosis. 10:43:58 6 Fr XBLAD 4 guide catheter was inserted over the wire 10:44:49 LASER ELCA 0.9 Rx atherectomy catheter (813400) opened to sterile field. 10:45:10 LAD lesion measured at .81 with IFR 10:45:58 Wire removed. 10:46:05 IFR WIRE wire advanced. 10:48:53 UNABLE TO CROSS WITH LASER CATHETER, REMOVED.. 10:49:31 Wire removed. 10:49:38 CHOICE ES 182 wire advanced. 10:50:38 UNABLE TO CROSS LASER CATHETER USING CHOICE ES, CATHETER AND WIRE REMOVED.. 10:51:54 CHOICE ES 182 wire advanced. 10:52:26 Inflate balloon Inflation number: 1 A EUPHORA 2.5 x 12 Balloon ([id number]) was prepped and advanced across the Prox LAD , then inflated to 21 ALYSIA for 0:00 (min:sec) . 10:52:37 Inflation number: 2 The EUPHORA 2.5 x 12 Balloon ([id number]) was reinflated across the Prox LAD , to 21 ALYSIA for 0:00 (min:sec) . 10:52:50 Inflation number: 3 The EUPHORA 2.5 x 12 Balloon ([id number]) was reinflated across the Prox LAD , to 21 ALYSIA for 0:00 (min:sec) . 10:52:59 Balloon removed over the wire. 10:53:27 Laser pass to pLAD with Fluence of 80 and Rate of 40. 10:53:38 Versed 2 mg I.V. was administered by Ignacio Cerda RN; for sedation; Verbal order read back and verified. 10:55:35 Laser total pulses delivered: 2000 10:55:40 Laser total treatment time: 0 minutes 0.5 seconds 10:55:42 Laser catheter removed. 10:56:39 Place stent Inflation Number: 4 A MAKEDA RX 3.0 x 38 stent ([id number]) was prepped and advanced across the Prox LAD . The stent was deployed at 21 ALYSIA for 0:00 (min:sec) . 10:56:59 Inflation number: 5 The stent balloon was then re-inflated across the Prox LAD to 19 ALYSIA for 0:00 (min:sec) . 10:57:25 Inflation number: 6 The stent balloon was then re-inflated across the Prox LAD to 17 ALYSIA for 0:00 (min:sec) . 10:57:52 Stent catheter was removed intact over wire. 10:57:53 Wire removed. 10:57:54 Guide catheter removed. 10:58:35 EXOSEAL 6Fr (EX600) opened to sterile field. 10:58:46 Sheath removed intact; hemostasis achieved with Exoseal to the Left Femoral artery. 10:59:00 Fluoroscopy time 00.00 minutes. 10:59:00 Procedure ended.(Physican Out) 10:59:06 Fluoroscopy dose: 591.76 mGy 10:59:06 Flurop Dose total: 591.76 10:59:11 Dose Area Product 72440 mGy/cm. 11:01:27 Contrast amount:Isovue 370 58ml. 11:01:30 Maximum allowable dose exceeded? No. 11:01:31 Sharps counted by scrub and verified by R.N. 11:01:36 Post-op/insertion site Left Femoral artery dressed using a 4 x 4 and Tegaderm. 11:01:44 Post left femerol artery:stable, soft, clean and dry 11:01:47 Post Procedure Pulses reassessed and unchanged 11:01:54 Post-procedure physical assessment completed. ASA score P 2 - A patient with mild systemic disease as per New Jerry MD. 11:01:57 Post procedure rhythm: unchanged. 11:02:00 Estimated blood loss: 10 ml 11:02:01 Post procedure instruction explained to patient.Patient verbalizes understanding. 11:02:02 Patient needs reinforcement of post procedure teaching. 11:02:51 ACT drawn and resulted at 206 seconds. (normal therapeutic range 180-240 seconds). 11:02:53 Procedure type changed to Cath procedure, Diagnostic procedure, FFR/IVUS, FFR Initial, FFR Additional, Sedation Charges, Moderate Sedation up to 30 minutes, PCI procedure, Coronary Stent, Coronary Stent Initial x2, Coronary Atherectomy, Atherectomy w/Stent Coronary Initial, Hemochron ACT Test 11:07:52 Procedure and supply charges have been captured, reviewed, submitted and are correct. 11:07:56 Procedure Complication : No complications 11:07:58 Vital chart was stopped 11:07:[address] [facility] Findings: MVD- PCI performed (see procedure note) 11:08:02 See physician's report for complete and final results. 11:08:02 Operative report dictated upon procedure completion. 11:08:06 Report given to Med II. 11:08:09 Patient transfered to Med II with Bed. 11:08:11 Full Disclosure recording stopped 11:08:11 Procedure ended. 11:08:18 ACC-PCI Only Patient was given prescriptions, or instructed by New Jerry MD to start/continue the following medications upon discharge: Plavix 11:08:19 End room use (Document Last) 11:08:30 End room use (Document Last) Intervention Summary Intervention Notes Time ActionType Lesion and Equipment Used Action# Pressure Duration Attributes 10:41:03 Place stent Mid RCA MAKEDA RX 3.0 x 1 15 00:00 22 stent ([id number]) 10:52:26 Inflate Prox LAD EUPHORA 2.5 x 1 21 00:00 balloon 12 Balloon ([id number]) 10:52:37 Reinflate Prox LAD EUPHORA 2.5 x 2 21 00:00 balloon 12 Balloon ([id number]) 10:52:50 Reinflate Prox LAD EUPHORA 2.5 x 3 21 00:00 balloon 12 Balloon ([id number]) 10:56:39 Place stent Prox LAD MAKEDA RX 3.0 x 4 21 00:00 38 stent ([id number]) 10:56:59 Reinflate Prox LAD MAKEDA RX 3.0 x 5 19 00:00 stent 38 stent balloon ([id number]) 10:57:25 Reinflate Prox LAD MAKEDA RX 3.0 x 6 17 00:00 stent 38 stent balloon ([id number]) Device Usage Item Name Manufacture Quantity Catalog Number Hospital Part Current Minimal Lot# / Charge Number Stock Stock Serial# Code SHEATH 6FR Terumo 1 [id number] 642548 874365 40 [place] ([id number]) INFLATOR Merit Merit 1 [id number] 307253 879787 758245 15 [facility] (FV2215) CHOICE PT [place] 1 [id number] 563561 741046 010604 5 Extra Support Scientific 182cm wire ([id number]) ACIST Syringe Acist 1 10871 000631 537482 608552 20 (77380) Medical Systems Inc Bag Decanter Microtek 1 2001S 676668 08786 878468 5 (2001S) Medical Inc. Medline Cath Medline 1 [id number] 778163 37755 929917 5 Pack ([id number]) ACIST Hand Acist 1 67173 245962 461098 392465 5 Control Medical (62949) Systems Inc ACIST Manifold Acist 1 79369 646620 287388 733718 5 (12909) Medical Systems Inc EMERALD Guide Cardinal 1 502-455 598685 917445 825480 5 Wire (502-455) Health GUIDE 6FR HS Medtronic 1 AL0OIJZ 091225 43801 624374 1 II catheter (UJ1ZKOY) Mullin Mullin 1 65356Z 676380 735393749 888150 5 Verrata Plus pressure wire (31384G) MAKEDA RX 3.0 x Medtronic 1 [id number] 152514 1400535 878920 5 [id number] 22 stent ([id number]) LASER ELCA 0.9 Miroslava 1 110-004 772620 756490 049063 5 Rx atherectomy Healthcare catheter (051141) (140435) EUPHORA 2.5 x Medtronic 1 [id number] 980457 469720 934016 5 [id number] 12 Balloon ([id number]) MAKEDA RX 3.0 x Medtronic 1 [id number] 803906 5045917 824158 5 [id number] 38 stent ([id number]) EXOSEAL 6Fr Cardinal 1 EX600 045032 250184 781905 10 (EX600) Health Signature Audit [place] Stage Time Signature Unsigned Intra-Procedure 10/19/2019 Meghan Warner 11:08:30 AM RT(R) Intra-Procedure 10/19/2019 Ignacio Cerda RN 11:09:31 AM Intra-Procedure 10/19/2019 New Jerry MD 11:09:46 AM 10/19/2019 3:02:25 PM Intra-Procedure 10/19/2019 New Jerry 3:05:01 PM Intra-Procedure 10/19/2019 New Jerry 3:05:[address] [address]
[~2019-10-16 05:11] MED LIST changes: -NOVOLOG100 U/M1 SC; +NOVOLOG100 UNIT/1 SC
[2019-10-16 05:46] LABS: BASOPHILS 0.5 % (0-2); EOSINOPHILS 2.1 % (0-7); HEMATOCRIT 46.3 % (42.0-54.0); HEMOGLOBIN 15.8 g/dL (13.5-17.5); IMMATURE GRANULOCYTES 0.5 % (0-5); LYMPHOCYTES 35.1 % (15-50); MCH 30.6 pg (26.0-34.0); MCHC 34.1 g/dL (31.0-37.0); MCV 89.6 fL (80.0-100.0); MEAN PLATELET VOLUME 12.1 fL (7.4-10.4); MONOCYTES 8.5 % (2-11); NEUTROPHILS 53.3 % (40-80); PLATELET COUNT 185 10x3/uL (130-400); RBC 5.17 10x6/uL (4.20-6.10); WBC 7.7 10x3/uL (4.8-10.8)
[2019-10-16 05:49] LABS: CALC OSMOLALITY 283 mosm/kg (275-300); CALCIUM 8.6 mg/dL (8.5-10.1); CARBON DIOXIDE 27.5 mmol/L (21.0-32.0); CHLORIDE - SERUM 104 mmol/L (98-107); CREATININE - SERUM 1.2 mg/dL (0.6-1.3); POTASSIUM - SERUM 4.4 mmol/L (3.5-5.1); SODIUM 136 mmol/L (136-145); UREA NITROGEN 22 mg/dL (7-18); eGFR NON AFRICAN AMERICAN 64 mL/min (90-120)
[2019-10-16 05:54] LABS: GLUCOSE 262 mg/dL (74-106)
[2019-10-16 06:00] VITALS: BP 136/70
[2019-10-16 06:14] LABS: ALBUMIN 3.3 g/dL (3.4-5.0); ALKALINE PHOSPHATASE 94 U/L (30-120); ALT (SGPT) 42 U/L (10-68); BILIRUBIN - TOTAL 0.36 mg/dL (0.2-1.3); CKMB 2.3 U/L (0.0-3.6); CREATINE KINASE 197 UL (21-232); PRO BNP 284 pg/mL (0-125); PROTEIN - SERUM 7.3 g/dL (6.4-8.2); TROPONIN-I < 0.017 ng/mL (0.000-0.060)
--- NOTE | 2019-10-16 07:30 | NUR ---
BS 242. HAD 8 U HUMALOG AT 0630. SPOKE WITH DR PANDYA. SLIDING SCALE HELD
[2019-10-16 07:34] LABS: APTT 28.8 SECONDS (22.8-39.4); INR 0.96 (0.85-1.17); PROTIME 12.8 SECONDS (11.6-15.0)
[2019-10-16 08:20] VITALS: BP 136/78
[2019-10-16 10:24] VITALS: BP 136/78; BMI 37.9
[2019-10-16 10:33] LABS: CKMB 2.2 U/L (0.0-3.6); CREATINE KINASE 162 UL (21-232); TROPONIN-I < 0.017 ng/mL (0.000-0.060)
[2019-10-16 11:50] VITALS: BP 126/59
--- NOTE | 2019-10-16 14:19 | NUR ---
LEAVING FOR STRESS TEST BY W/C.
[2019-10-16 17:12] LABS: CREATINE KINASE 176 UL (21-232); TROPONIN-I < 0.017 ng/mL (0.000-0.060)
--- NOTE | 2019-10-16 19:40 | NUR ---
RECEIVED BEDSIDE REPORT. PATIENT IS ALERT AND ORIENTED, RESTING COMFORTABLY IN BED. RESPIRATIONS ARE EVEN AND UNLABORED. NO S/S OF DISTRESS. NO C/O PAIN. CALL LIGHT WITHIN REACH. WILL CPOC.
[2019-10-16 21:03] VITALS: BP 89/54
[2019-10-16 21:54] VITALS: BP 138/68
--- NOTE | 2019-10-16 23:54 | NUR ---
PATIENT RESTING COMFORTABLY IN BED. RESPIRATIONS ARE EVEN AND UNLABORED. NO S/S OF DISTRESS. CALL LIGHT WITHIN REACH. FAMILY AT BEDSIDE. WILL CPOC.
[2019-10-17 01:51] VITALS: BP 117/63
[2019-10-17 06:23] LABS: BASOPHILS 0.6 % (0-2); EOSINOPHILS 2.6 % (0-7); HEMATOCRIT 42.6 % (42.0-54.0); HEMOGLOBIN 14.3 g/dL (13.5-17.5); IMMATURE GRANULOCYTES 0.6 % (0-5); LYMPHOCYTES 35.3 % (15-50); MCH 30.3 pg (26.0-34.0); MCHC 33.6 g/dL (31.0-37.0); MCV 90.3 fL (80.0-100.0); MEAN PLATELET VOLUME 12.7 fL (7.4-10.4); NEUTROPHILS 51.9 % (40-80); PLATELET COUNT 189 10x3/uL (130-400); RBC 4.72 10x6/uL (4.20-6.10); RDW 13.2 % (11.5-14.5); WBC 7.8 10x3/uL (4.8-10.8)
[2019-10-17 06:34] VITALS: BP 114/66
[2019-10-17 07:22] LABS: ANION GAP 12.6 mmol/L (8-16); CALCIUM 8.6 mg/dL (8.5-10.1); CARBON DIOXIDE 24.5 mmol/L (21.0-32.0); CREATININE - SERUM 1.1 mg/dL (0.6-1.3); POTASSIUM - SERUM 4.1 mmol/L (3.5-5.1)
[2019-10-17 08:28] LABS: LDL-HDL RATIO 3.3 ratio (1.5-3.5)
[2019-10-17 08:33] VITALS: BP 130/79
--- NOTE | 2019-10-17 09:40 | NUR ---
CONSENTS OBTAINED AND PLACED IN CHART. PT IS VERY FAMILIAR WITH PROCEDURE AND DENIES ANY QUESTIONS OR CONCERNS. PT WAS ABLE TO EAT A LIGHT BREAKFAST AND NOW IS NPO AND VERBALIZED UNDERSTANDING. NO CURRENT NEEDS. WILL CTM.
--- NOTE | 2019-10-17 11:18 | NUR ---
FSBS 206 DID NOT TREAT PT WITH SS INSULIN HE IS NPO AWAITING TO GO TO PROCEDURE. PT RESTING QUIETLY AND DENIES ANY CURRENT PAIN OR NEEDS AT THIS TIME. CL IN REACH. WILL CTM.
[2019-10-17 11:37] VITALS: BP 139/74
[2019-10-17 14:32] VITALS: Ht 188 cm; Wt 134.0 kg
--- NOTE | 2019-10-17 14:53 | NUR ---
AG EQUIPMENT FIELD SERVICE TECHNICIAN CALLED TO PRE-OP PT. PRE-OP MEDICATIONS GIVEN. PT IN BED READY TO GO. NO CURRENT NEEDS. WILL CTM.
--- NOTE | 2019-10-17 15:14 | NUR ---
PT LEAVING FOR NEWS OPERATIONS MANAGER AT THIS TIME. NO CURRENT NEEDS.
--- NOTE | 2019-10-17 16:58 | NUR ---
PT BACK FROM IMPROVEMENT LEADER. PT IS TO REMAIN FLAT X4 HOURS AND VERBALIZED UNDERSTANDING. PT HAS A VICTORIANO GONZALEZG CDI NO S/S OF HEMATOMA OR BLEEDING NOTED. NS INFUSING VIA L.AC ORDERED. VSS AND BEING MONITERED PER POST PROCEDURE PROTOCOL.
--- NOTE | 2019-10-17 17:22 | NUR ---
FSBS 162 NO ACTION TAKEN R/T PT NOT USING THIS SS AT HOME AND HE ISNT SURE IF HES GOING TO EAT DINNER OR NOT. PT REMAINS LYING FLAT IN BED. VICTORIANO DRSG CDI NO S/S OF HEMATOMA OR BLEEDING NOTED. PERIPHERAL PULSES INTACT. VSS AND BEING MONITERED PER POST PROCEDURE PROTOCOL.
--- NOTE | 2019-10-17 18:43 | NUR ---
PT REMAINS LYING FLAT IN BED. R.GROIN DRSG CDI NO S/S OF BLEEDING OR HEMATOMA NOTED. VSS AND STILL BEING MONITERED PER POST PROCEDURE GUIDELINES. PERIPHERAL PULSES INTACT. AT BEDSIDE. NO CURRENT NEEDS. WILL PASS ON IN SHIFT REPORT.
--- NOTE | 2019-10-17 19:41 | NUR ---
RECEIVED BEDSDIE REPORT. PATIENT IS ALERT AND ORIENTED, RESTING IN BED. RESPIRATIONS ARE EVEN AND UNLABORED. NO S/S OF DISTRESS. NO C/O PAIN. NEEDS MET. CALL LIGHT WITHIN REACH. WILL CPOC.
[2019-10-17 20:00] VITALS: BP 134/61
[2019-10-18 04:00] VITALS: BP 142/70
[2019-10-18 05:14] LABS: BASOPHILS 0.6 % (0-2); EOSINOPHILS 2.9 % (0-7); HEMATOCRIT 44.9 % (42.0-54.0); IMMATURE GRANULOCYTES 0.6 % (0-5); LYMPHOCYTES 30.2 % (15-50); MCH 30.4 pg (26.0-34.0); MCHC 33.4 g/dL (31.0-37.0); MCV 90.9 fL (80.0-100.0); MEAN PLATELET VOLUME 12.2 fL (7.4-10.4); MONOCYTES 10.5 % (2-11); NEUTROPHILS 55.2 % (40-80); PLATELET COUNT 184 10x3/uL (130-400); RBC 4.94 10x6/uL (4.20-6.10); RDW 13.3 % (11.5-14.5); WBC 8.3 10x3/uL (4.8-10.8)
[2019-10-18 05:28] LABS: ANION GAP 11.4 mmol/L (8-16); CALCIUM 8.3 mg/dL (8.5-10.1); CARBON DIOXIDE 28.8 mmol/L (21.0-32.0); CREATININE - SERUM 1.2 mg/dL (0.6-1.3); POTASSIUM - SERUM 4.2 mmol/L (3.5-5.1)
--- NOTE | 2019-10-18 07:10 | NUR ---
REPORT RECEIVED FROM SENIOR DESIGN ENGINEER AND PATIENT CARE ASSUMED. PATIENT LAYING IN BED ON BACK AWAKE, ALERT AND ORIENTED X 4. PATIENT COMPLAINS OF CONSTIPATION AND REQUESTS RX FOR IT.DISCUSSED WITH LOTTIE CORNELL. AWAITING NEW ORDER. FAMILY AT BS. WILL CONTINUE WITH PLAN OF CARE. SR UP X 2 BED IN LOW POSITION AND CALL LIGHT IN REACH.
--- NOTE | 2019-10-18 09:30 | NUR ---
MEDICATED PATIENT PER MAR WITH DUCOLOX SUPP, MIRALAX AND PRUNE JUICE WARMED WITH SPRITE. WILL CONTINUE TO [facility].
[2019-10-18 10:59] VITALS: BP 166/67
--- NOTE | 2019-10-18 11:30 | NUR ---
PATIENT IS STABLE AND VSS. UPON ENTERING PATIENTS ROOM, PATIENT WAS EATING FOOD THAT BROUGHT FROM HOME. PATIENT REFUSED TO HAVE BS CHECKED. STATED HE DID NOT WANT TO BE BOTHERED AT THIS TIME. IN ADDITION PATIENT HAS NOT HAD BM YET. WILL CONTINUE TO MONITOR. SR UPX 2 BED IN LOW POSITION AND CALL LIGHT IN REACH.
[2019-10-18 13:52] VITALS: BP 144/70
--- NOTE | 2019-10-18 14:15 | NUR ---
PATIENT IS STABLE AND VSS. PATIENT DENIES ANY NEEDS OR PAIN. AT BS. WILL CONTINUE TO MONITOR. SR UP X 2 BED IN LOW POSITION AND CALL LIGHT IN REACH.
--- NOTE | 2019-10-18 19:41 | NUR ---
RECEIVED BEDSIDE REPORT. PATIENT IS ALERT AND ORIENTED, RESTING COMFORTABLY IN BED. RESPIRATIONS ARE EVEN AND UNLABORED. NO S/S OF DISTRESS. NO C/O PAIN. NEEDS MET. CALL LIGHT WITHIN REACH. WILL CPOC.
[2019-10-18 20:00] VITALS: BP 144/56
[2019-10-19] VITALS: BP 133/66
--- NOTE | 2019-10-19 01:53 | NUR ---
PATIENT RESTING COMFORTABLY IN BED. RESPIRATIONS ARE EVEN AND UNLABORED. NO S/S OF DSITRESS. NO C/O PAIN. CALL LIGHT WITHIN REACH. WILL CPOC.
[2019-10-19 04:00] VITALS: BP 160/66
[2019-10-19 05:11] LABS: BASOPHILS 0.3 % (0-2); HEMATOCRIT 44.1 % (42.0-54.0); IMMATURE GRANULOCYTES 0.8 % (0-5); LYMPHOCYTES 31.8 % (15-50); MCH 30.9 pg (26.0-34.0); MCV 90.7 fL (80.0-100.0); MONOCYTES 10.5 % (2-11); NEUTROPHILS 53.6 % (40-80); PLATELET COUNT 179 10x3/uL (130-400); RBC 4.86 10x6/uL (4.20-6.10); RDW 13.3 % (11.5-14.5); WBC 9.8 10x3/uL (4.8-10.8)
[2019-10-19 05:26] LABS: ANION GAP 13.7 mmol/L (8-16); CALCIUM 8.3 mg/dL (8.5-10.1); CARBON DIOXIDE 24.4 mmol/L (21.0-32.0); CREATININE - SERUM 1.3 mg/dL (0.6-1.3); POTASSIUM - SERUM 4.1 mmol/L (3.5-5.1)
--- NOTE | 2019-10-19 07:10 | NUR ---
REPORT RECEIVED FROM AGED OR DISABLED CARER AND PATIENT CARE ASSUMED. PATIENT LAYING IN BED AWAKE, ALERT AND ORIETED X 4. PATIENT IS STABLE AND VSS. PATIENT DENIES ANY NEEDS OR PAIN. PATIENT NPO AWAITING LEFT HEART CATH LASER . WILL CONTINUE WITH PLAN OF CARE. SR UP X 2 BED IN LOW POSITION AND CALL LIGHT IN REACH.
[2019-10-19 09:26] VITALS: BP 156/57
--- NOTE | 2019-10-19 09:54 | NUR ---
PATIENT IS STABLE AND VSS. PATIENT DENIES ANY NEEDS OR PAIN. PATIET PREOP PER CLINICAL ASSOCIATE ORDERS. PATIENT TO CLINICAL ASSOCIATE VIA HOSPITAL BED ACCOMPANIED BY CLINICAL ASSOCIATE TEAM STAFF.
--- NOTE | 2019-10-19 11:01 | NUR ---
Nutrition Follow-up: NPO for heart cath. Noted pt ate 100% x 3 meals yesterday. No new wt; last wt: 295.4# (10/17) Last BM: 10/18 Labs noted: Glu 244, Ca 8.3 Meds noted: Miralax, Amaryl, Protonix, Humalog -Rec cardiac carb consistent following procedure. -Need new wt; noted daily wts ordered. -RD following.
--- NOTE | 2019-10-19 11:11 | NUR ---
RECEIVED CALL FROM CORPORATE QUALITY ASSURANCE MANAGER TEAM . PATIENT HAD STENT TO RCA AND ONE STENT TO LAD ACCESS THROUGH LT GROIN.
[2019-10-19] MEDS ORDERED: EFFIENT10 MG PO (16:10)
[2019-10-19] MEDS ORDERED: CRESTOR20 MG PO (16:13)
--- NOTE | 2019-10-19 16:31 | MORECARE ---
CASE MANAGEMENT DISCHARGE SUMMARY PATIENT: SAVANNA PORTER UNIT: [id number] ADM DATE: 10/17/19 AGE: 69 : 52 SEX: M ROOM/BED: D.5316 AUTHOR: PANKAJ COTA PHYSICIAN: REFERRING PHYSICIAN: DAVIAN BRAVO MD DATE OF SERVICE: 10/19/19 Discharge Plan Patient Name: SAVANNA PORTER Facility: [facility]:[place] : 1950 Planned Disposition: Anticipated Discharge Date: Discharge Date: Expected LOS: Initial Reviewer: [email or web address] Initial Review Date: 10/19/2019 Generated: 10/19/19 5:31 pm Comments DCP- Discharge Planning Updated by [email or web address]: Michelle Onofre on 10/19/19 3:[address] Patient Name: SAVANNA PORTER Admission Status: ER Accout number: [id number] Admission Date: 10-17-2019 : 1950 Admission Diagnosis: Attending: DAVIAN BRAVO Current LOS: 2 Anticipated DC Date: Planned Disposition: Primary Insurance: MEDICARE A & B Discharge Planning Comments: CM MET WITH PATIENT AFTER OBTAINING VERBAL CONSENT. PATIENT PLANS TO DC TO HOME TODAY. DENIES NEED FOR REHAB, HH OR EQUIPMENT. IMM SIGNED. Nematology Teacher: Michelle Onofre Coverage Notice Reviewer: [id number] Lizy Light Notice Issued Date-Time: 10/16/2019 16:00 Notice Type: Medicare Outpatient Observation Notice Notice Delivered To: Family Member Relationship to Patient: Spouse Property Management Bookkeeper Name: LINDA PORTER Delivery Method: HAND - Hand Delivered Bonnie Days: Prior Verbal Notification: Recipient Understood Notice: Yes Recipient Signature: Yes Med Rec Note Co-signed by Attending: Coverage Notice Comment: BATRES SERVED, EXPLAINED, AND SIGNED BY PATIENT. THE ORIGINAL WAS PROVIDED TO THE PATIENT AND COPY PLACED ON CHART. Reviewer: [email or web address] Lizy Onofre Notice Issued Date-Time: 10/19/2019 16:27 Notice Type: IM Discharge Notice Notice Delivered To: Patient Relationship to Patient: Property Management Bookkeeper Name: Delivery Method: HAND - Hand Delivered Bonnie Days: Prior Verbal Notification: Recipient Understood Notice: Yes Recipient Signature: Yes Med Rec Note Co-signed by Attending: Coverage Notice Comment: Patient Name: SAVANNA PORTER Page [phone] at 1631 All edits/amendments must be made on the electronic document DICTATION DATE: 10/19/19 163 JAVA SYSTEMS ANALYST: CHELSIE 10/19/19 163 RPT#: [id number] DC DATE: STATUS: ADM IN [facility] [address] [place] [address] END OF REPORT
--- NOTE | 2019-10-19 16:42 | OP ---
PATIENT NAME: SAVANNA PORTER MEDICAL RECORD: [id number] :52 LOCATION:D.M2 D.0 ADMISSION DATE:10/17/19 SURGEON: TK LOTT MD DATE OF OPERATION: 10/19/2019 PROCEDURES: 1. Laser atherectomy, PTCA and stent of LAD. 2. PTCA and stent of RCA. 3. IFR of LAD. 4. IFR of RCA. 5. Selective coronary angiography. INDICATIONS: Angina and coronary artery disease. PROCEDURE IN DETAIL: After informed consent was obtained and after a detailed explanation of the risks, benefits as well as alternative therapies, the patient elected to proceed with angiogram and angioplasty. The left femoral area was prepped and draped in normal sterile fashion. Left femoral artery was cannulated via modified Seldinger technique with placement of 6-Filipino sheath. All catheters exchanged through this sheath. FINDINGS: The right coronary has 70% stenosis in the proximal mid vessel. IFR was abnormal. This was addressed with a 3.0 x 22-mm Julio Cesar. Result was 0% residual stenosis. PTCA AND STENT OF THE LAD WITH LASER ATHERECTOMY: The LAD has multiple areas of 70% to 80% stenosis. IFR was abnormal. This was lased with 0.9 laser catheter. Multiple passes were made at 80/40. Stenting was undertaken with a 3.0 x 38 Lyerly. Result was 0% residual stenosis. OVERALL IMPRESSION: Successful PTCA and stent of the LAD with laser atherectomy going from 80% initial stenosis to 0% residual. TRANSINT:[id number] Voice Confirmation ID: [id number] DOCUMENT ID: [id number] TK LOTT MD at 1642 CC: [id number] DICTATION DATE: 10/19/19 1102 REGIONAL SALES ENGINEER: 10/19/19 1320 [place] [address]
--- NOTE | 2019-10-19 18:21 | MORECARE ---
CASE MANAGEMENT DISCHARGE SUMMARY PATIENT: SAVANNA PORTER UNIT: [id number] ADM DATE: 10/17/19 AGE: 69 : 51 SEX: M ROOM/BED: D.7856 AUTHOR: PANKAJ COTA PHYSICIAN: REFERRING PHYSICIAN: DAVIAN BRAVO MD DATE OF SERVICE: 10/19/19 Discharge Plan Patient Name: SAVANNA PORTER Facility: [facility]:[place] : 1950 Planned Disposition: Anticipated Discharge Date: Discharge Date: 10/19/2019 Expected LOS: Initial Reviewer: [id number] Initial Review Date: 10/19/2019 Generated: 10/19/19 7:21 pm Comments DCP- Discharge Planning Updated by [email or web address]: Michelle Onofre on 10/19/19 3:[address] Patient Name: ASVANNA PORTER Admission Status: ER Accout number: [id number] Admission Date: 10-17-2019 : 1950 Admission Diagnosis: Attending: DAVIAN BRAVO Current LOS: 2 Anticipated DC Date: Planned Disposition: Primary Insurance: MEDICARE A & B Discharge Planning Comments: CM MET WITH PATIENT AFTER OBTAINING VERBAL CONSENT. PATIENT PLANS TO DC TO HOME TODAY. DENIES NEED FOR REHAB, HH OR EQUIPMENT. IMM SIGNED. [employer] Driver: Michelle Onofre Coverage Notice Reviewer: [email or web address] Lizy Light Notice Issued Date-Time: 10/16/2019 16:00 Notice Type: Medicare Outpatient Observation Notice Notice Delivered To: Family Member Relationship to Patient: Spouse Pug Mill Operator Name: LINDA PORTER Delivery Method: HAND - Hand Delivered Bonnie Days: Prior Verbal Notification: Recipient Understood Notice: Yes Recipient Signature: Yes Med Rec Note Co-signed by Attending: Coverage Notice Comment: BATRES SERVED, EXPLAINED, AND SIGNED BY PATIENT. THE ORIGINAL WAS PROVIDED TO THE PATIENT AND COPY PLACED ON CHART. Reviewer: [email or web address] Lizy Onofre Notice Issued Date-Time: 10/19/2019 16:27 Notice Type: IM Discharge Notice Notice Delivered To: Patient Relationship to Patient: Pug Mill Operator Name: Delivery Method: HAND - Hand Delivered Bonnie Days: Prior Verbal Notification: Recipient Understood Notice: Yes Recipient Signature: Yes Med Rec Note Co-signed by Attending: Coverage Notice Comment: Last DP export: 10/19/19 3:31 p Patient Name: SAVANNA PORTER Page [phone] at 1821 All edits/amendments must be made on the electronic document DICTATION DATE: 10/19/191820 SPECIAL NEEDS BABYSITTER: CHELSIE 10/19/191820 RPT#: [id number] DC DATE:10/19/19 STATUS: DIS IN [facility] [address] [place] [address] END OF REPORT
== END 2019-10-19 17:00 | disposition home or self-care (01) | DRG 246 ==
LOC: D.ER 05:11 → D.M2 06:48 → OBSVTIME 09:17 → D.M2 09:41
PROVIDERS: Emergency Medicine; Internal Medicine Cardiovascular Disease; ADMIT Internal Medicine Nephrology; ATTEND Internal Medicine Nephrology
PROC: 4A023N7 Measurement of Cardiac Sampling and Pressure, Left Heart, Percutaneous Approach (ICD-10-PCS; 2019-10-17)
PROC: B2111ZZ Fluoroscopy of Multiple Coronary Arteries using Low Osmolar Contrast (ICD-10-PCS; 2019-10-17)
PROC: B2151ZZ Fluoroscopy of Left Heart using Low Osmolar Contrast (ICD-10-PCS; 2019-10-17)
PROC: 027034Z Dilation of Coronary Artery, One Artery with Drug-eluting Intraluminal Device, Percutaneous Approach (ICD-10-PCS; principal; 2019-10-17 15:11)
PROC: 027135Z Dilation of Coronary Artery, Two Arteries with Two Drug-eluting Intraluminal Devices, Percutaneous Approach (ICD-10-PCS; 2019-10-19)
PROC: 02C03ZZ Extirpation of Matter from Coronary Artery, One Artery, Percutaneous Approach (ICD-10-PCS; 2019-10-19)
PROC: 4A033BC Measurement of Arterial Pressure, Coronary, Percutaneous Approach (ICD-10-PCS; 2019-10-19)
DX: I25.119 Atherosclerotic heart disease of native coronary artery with unspecified angina pectoris (principal); J96.01 Acute respiratory failure with hypoxia; N17.9 Acute kidney failure, unspecified; F17.213 Nicotine dependence, cigarettes, with withdrawal; E78.5 Hyperlipidemia, unspecified; E11.9 Type 2 diabetes mellitus without complications; I10 Essential (primary) hypertension